=== PATIENT | male | born 1945 | race Caucasian/White ===

== ENCOUNTER 2019-12-10 10:44 | Outpatient (CLI) | payer MEDICARE, OTHER, SELFPAY | END 2019-12-10 10:45 | disposition home or self-care (01) | LOC: ANHAUDIO 10:47 | PROVIDERS: PCP Internal Medicine; Visit Provider Internal Medicine | DX: H91.90 Unspecified hearing loss, unspecified ear (principal) | CPT/HCPCS: 92557; 92567 ==

== ENCOUNTER 2020-09-30 08:45 | Outpatient (CLI) | payer MEDICARE, OTHER, SELFPAY ==
[2020-09-30 09:30] LABS: Basophils Percent Auto 0.7 % (0.2-1.2); Eosinophils Absolute Auto 0.5 K/mm3 (0-0.3); Hematocrit 43.2 % (42.0-52.0); Hemoglobin 14.2 g/dL (14.0-18.0); Immature Granulocyte Absolute 0.01 K/mm3 (0.00-0.031); Immature Granulocyte Percent A 0.2 % (0-0.5); Lymphocytes Absolute Auto 0.94 K/mm3 (0.9-3.2); Lymphocytes Percent Auto 21.7 % (18.3-44.2); Mean Corpuscular HGB Conc 32.9 g/dl (32-36); Mean Corpuscular Hemoglobin 29.5 pg (26-34); Mean Corpuscular Volume 89.6 fl (80-100); Mean Platelet Volume 10.8 fl (7.4-10.4); Monocytes Absolute Auto 0.3 K/mm3 (0.1-0.6); Monocytes Percent Auto 7.4 % (2.6-8.5); Neutrophils Absolute Auto 2.5 K/mm3 (1.3-6.7); Platelet Count Result 157 k/mm3 (150-375); Red Blood Count 4.82 M/mm3 (4.6-6.20); Red Cell Distribution Width 12.7 % (11.5-14.5); White Blood Count 4.3 K/mm3 (4.5-10.0)
[2020-09-30 09:42] LABS: Alanine Aminotransferase 18 U/L (4-50); Albumin Level 4.3 g/dL (3.5-5.1); Alkaline Phosphatase 62 U/L (38-126); Anion Gap 6 mmol/L (8-16); Aspartate Amino Transferase 28 U/L (17-59); Bilirubin,Total 0.9 mg/dL (0.2-1.3); Blood Urea Nitrogen 13 mg/dL (9-20); Carbon Dioxide 31 mmol/L (22-30); Chloride 103 mmol/L (98-107); Cholesterol 167 mg/dL (0-200); Estimated Glomerular Filt Rate > 60; Glucose 106 mg/dL (75-110); HDL Direct 46 mg/dL; Potassium 4.2 mmol/L (3.4-5.0); Sodium 140 mmol/L (137-145); Triglycerides 114 mg/dL (<150)
[2020-09-30 09:53] LABS: LDL Cholesterol Direct 96 mg/dL
[2020-09-30 10:11] LABS: Prostate Specific Antigen < 0.1 ng/mL (< OR = 4.0)
== END 2020-09-30 08:46 | disposition home or self-care (01) ==
PROVIDERS: PCP Internal Medicine; Visit Provider Nurse Practitioner
DX: I10 Essential (primary) hypertension (principal); E78.5 Hyperlipidemia, unspecified; Z85.46 Personal history of malignant neoplasm of prostate
CPT/HCPCS: 36415; 80053; 80061; 84153; 85025

== ENCOUNTER 2021-10-05 10:15 | Outpatient (CLI) | payer MEDICARE, OTHER, SELFPAY ==
[2021-10-05 10:36] LABS: Basophils Percent Auto 0.6 % (0.2-1.2); Eosinophils Absolute Auto 0.1 K/mm3 (0-0.3); Eosinophils Percent Auto 3.4 % (0-4.4); Hematocrit 43.3 % (42.0-52.0); Hemoglobin 13.8 g/dL (14.0-18.0); Immature Granulocyte Absolute 0.01 K/mm3 (0.00-0.031); Immature Granulocyte Percent A 0.3 % (0-0.5); Lymphocytes Absolute Auto 0.78 K/mm3 (0.9-3.2); Lymphocytes Percent Auto 22.3 % (18.3-44.2); Mean Corpuscular HGB Conc 31.9 g/dl (32-36); Mean Corpuscular Hemoglobin 29.1 pg (26-34); Mean Corpuscular Volume 91.4 fl (80-100); Mean Platelet Volume 10.5 fl (7.4-10.4); Monocytes Absolute Auto 0.4 K/mm3 (0.1-0.6); Neutrophils Absolute Auto 2.2 K/mm3 (1.3-6.7); Neutrophils Percent Auto 63.4 % (45.5-73.1); Platelet Count Result 149 k/mm3 (150-375); Red Blood Count 4.74 M/mm3 (4.6-6.20); Red Cell Distribution Width 13.3 % (11.5-14.5); White Blood Count 3.5 K/mm3 (4.5-10.0)
[2021-10-05 10:51] LABS: Alanine Aminotransferase 16 U/L (4-50); Albumin Level 4.4 g/dL (3.5-5.1); Alkaline Phosphatase 65 U/L (38-126); Anion Gap 5 mmol/L (8-16); Aspartate Amino Transferase 27 U/L (17-59); Blood Urea Nitrogen 12 mg/dL (9-20); Calcium 9.3 mg/dL (8.4-10.2); Carbon Dioxide 30 mmol/L (22-30); Chloride 103 mmol/L (98-107); Cholesterol 188 mg/dL (0-200); Estimated Glomerular Filt Rate > 60; Glucose 118 mg/dL (65-110); HDL Direct 53 mg/dL; Potassium 4.3 mmol/L (3.4-5.0); Sodium 138 mmol/L (137-145); Triglycerides 71 mg/dL (<150)
[2021-10-05 11:02] LABS: LDL Cholesterol Direct 108 mg/dL
[2021-10-06 13:18] LABS: Hemoglobin A1C 5.9 % (<5.7)
== END 2021-10-05 10:16 | disposition home or self-care (01) ==
PROVIDERS: PCP Internal Medicine; Visit Provider Nurse Practitioner
DX: U07.1 COVID-19 (principal); E78.5 Hyperlipidemia, unspecified; I10 Essential (primary) hypertension; Z51.81 Encounter for therapeutic drug level monitoring; Z79.899 Other long term (current) drug therapy
CPT/HCPCS: 36415; 80053; 80061; 83036; 85025; 86769

== ENCOUNTER 2021-10-22 09:31 | Outpatient (CLI) | payer MEDICARE, OTHER, SELFPAY ==
[2021-10-22 10:08] LABS: Basophils Percent Auto 0.4 % (0.2-1.2); Eosinophils Absolute Auto 0.2 K/mm3 (0-0.3); Eosinophils Percent Auto 3.2 % (0-4.4); Hematocrit 44.7 % (42.0-52.0); Hemoglobin 14.1 g/dL (14.0-18.0); Immature Granulocyte Absolute 0.02 K/mm3 (0.00-0.031); Immature Granulocyte Percent A 0.4 % (0-0.5); Immature Platelet Fraction Pct 5.1 % (0.9-11.2); Lymphocytes Percent Auto 12.9 % (18.3-44.2); Mean Corpuscular HGB Conc 31.5 g/dl (32-36); Mean Corpuscular Hemoglobin 28.8 pg (26-34); Mean Corpuscular Volume 91.2 fl (80-100); Mean Platelet Volume 10.7 fl (7.4-10.4); Monocytes Absolute Auto 0.4 K/mm3 (0.1-0.6); Monocytes Percent Auto 8.2 % (2.6-8.5); Neutrophils Absolute Auto 3.5 K/mm3 (1.3-6.7); Neutrophils Percent Auto 74.9 % (45.5-73.1); Platelet Count Result 143 k/mm3 (150-375); Red Cell Distribution Width 13.1 % (11.5-14.5); White Blood Count 4.7 K/mm3 (4.5-10.0)
[2021-10-22 11:00] LABS: Prostate Specific Antigen < 0.1 ng/mL (< OR = 4.0)
== END 2021-10-22 09:32 | disposition home or self-care (01) ==
PROVIDERS: PCP Internal Medicine; Visit Provider Nurse Practitioner
DX: Z12.5 Encounter for screening for malignant neoplasm of prostate (principal); Z85.46 Personal history of malignant neoplasm of prostate; D72.819 Decreased white blood cell count, unspecified
CPT/HCPCS: 36415; 84153; 85025; 85055; G0103

== ENCOUNTER 2021-12-02 07:29 | Outpatient (CLI) | payer MEDICARE, OTHER, SELFPAY ==
[2021-12-02 08:32] LABS: Basophils Percent Auto 0.5 % (0.2-1.2); Eosinophils Absolute Auto 0.4 K/mm3 (0-0.3); Eosinophils Percent Auto 11.1 % (0-4.4); Hematocrit 43.6 % (42.0-52.0); Immature Granulocyte Absolute 0.02 K/mm3 (0.00-0.031); Immature Granulocyte Percent A 0.5 % (0-0.5); Immature Platelet Fraction Pct 6.1 % (0.9-11.2); Lymphocytes Absolute Auto 0.91 K/mm3 (0.9-3.2); Lymphocytes Percent Auto 23.6 % (18.3-44.2); Mean Corpuscular HGB Conc 32.1 g/dl (32-36); Mean Corpuscular Hemoglobin 29.6 pg (26-34); Mean Corpuscular Volume 92.2 fl (80-100); Mean Platelet Volume 11.4 fl (7.4-10.4); Monocytes Absolute Auto 0.5 K/mm3 (0.1-0.6); Monocytes Percent Auto 12.7 % (2.6-8.5); Neutrophils Percent Auto 51.6 % (45.5-73.1); Platelet Count Result 129 k/mm3 (150-375); Red Blood Count 4.73 M/mm3 (4.6-6.20); Red Cell Distribution Width 13.2 % (11.5-14.5); White Blood Count 3.9 K/mm3 (4.5-10.0)
== END 2021-12-02 07:30 | disposition home or self-care (01) ==
PROVIDERS: PCP Internal Medicine; Visit Provider Nurse Practitioner
DX: D72.819 Decreased white blood cell count, unspecified (principal)
CPT/HCPCS: 36415; 85025; 85055

== ENCOUNTER 2022-02-03 15:54 | Outpatient (CLI) | payer MEDICARE, OTHER, SELFPAY ==
[2022-02-03 16:14] LABS: Basophils Percent Auto 0.5 % (0.2-1.2); Eosinophils Absolute Auto 0.2 K/mm3 (0-0.3); Eosinophils Percent Auto 5.5 % (0-4.4); Hematocrit 45.6 % (42.0-52.0); Hemoglobin 14.6 g/dL (14.0-18.0); Immature Granulocyte Absolute 0.01 K/mm3 (0.00-0.031); Immature Granulocyte Percent A 0.2 % (0-0.5); Lymphocytes Absolute Auto 0.78 K/mm3 (0.9-3.2); Lymphocytes Percent Auto 17.8 % (18.3-44.2); Mean Corpuscular Volume 90.5 fl (80-100); Mean Platelet Volume 10.7 fl (7.4-10.4); Monocytes Absolute Auto 0.4 K/mm3 (0.1-0.6); Monocytes Percent Auto 8.7 % (2.6-8.5); Neutrophils Absolute Auto 2.9 K/mm3 (1.3-6.7); Neutrophils Percent Auto 67.3 % (45.5-73.1); Platelet Count Result 167 k/mm3 (150-375); Red Blood Count 5.04 M/mm3 (4.6-6.20); Red Cell Distribution Width 13.2 % (11.5-14.5); White Blood Count 4.4 K/mm3 (4.5-10.0)
[2022-02-03 16:42] LABS: Alanine Aminotransferase 16 U/L (6-50); Albumin Level 4.6 g/dL (3.5-5.1); Alkaline Phosphatase 75 U/L (38-126); Anion Gap 7 mmol/L (8-16); Aspartate Amino Transferase 45 U/L (17-59); Bilirubin,Total 0.6 mg/dL (0.2-1.3); Blood Urea Nitrogen 14 mg/dL (9-20); Carbon Dioxide 28 mmol/L (22-30); Chloride 101 mmol/L (98-107); Estimated Glomerular Filt Rate > 60; Glucose 94 mg/dL (65-110); Lactate Dehydrogenase 308 U/L (313-618); Potassium 4.4 mmol/L (3.4-5.0); Sodium 136 mmol/L (137-145)
[2022-02-03 17:50] LABS: Folic Acid > 20.0 ng/mL (2.76->20)
[2022-02-03 18:22] LABS: Iron 65 ug/dL (49-181)
[2022-02-03 18:30] LABS: Percent Iron Saturation 17 % (20-50)
[2022-02-07 23:56] LABS: Methylmalonic Acid 121 nmol/L (87-318)
== END 2022-02-03 15:55 | disposition home or self-care (01) ==
LOC: ANHLAB 15:57
PROVIDERS: PCP Internal Medicine; Visit Provider Internal Medicine Hematology & Oncology
DX: D64.9 Anemia, unspecified (principal)
CPT/HCPCS: 36415; 80053; 82607; 82728; 82746; 83540; 83550; 83615; 83921; 85025; 86038

== ENCOUNTER 2022-06-01 01:39 | Day surgery (SDC) | payer MEDICARE, OTHER, SELFPAY ==
[2022-05-18 15:04] VITALS: BMI 21.7
[2022-06-01 08:50] VITALS: BP 139/77; PULSE 88; RESP 20; TEMP 36; O2SAT 100; BMI 19.2
[2022-06-01] MEDS: LACTATED RINGERS 1,000 ML 150 ML IV CONT (09:04)
--- NOTE | 2022-06-01 09:24 | P.PNAN_ITS ---
Anes - Initial Pre Proc Eval Procedure: Operation Date: 06/01/22 10:00 Proposed Procedures p Colonoscopy - Jase Holder MD Date/Time: 06/01/22 09:24 Surgeon: Jase Holder MD Pre Op Diagnosis: LINH Patient Data Age: 77 Gender: M Height: 1.83 m Weight: 64.4 kg Last Vital Signs Temp 36.0 C L 06/01/22 08:50 Pulse 88 06/01/22 08:50 Resp 20 06/01/22 08:50 BP 139/77 06/01/22 08:50 Pulse Ox 100 06/01/22 08:50 O2 Del Method Room Air 06/01/22 08:50 Allergies Allergy/AdvReac Type Severity Reaction Status Date / Time No Known Allergies Allergy Verified 05/18/22 15:03 Home Medications Medication Instructions Recorded Confirmed Type aspirin 81 mg tablet,delayed 81 mg PO DAILY #90 tabs 08/16/21 06/01/22 Rx release (Adult Low Dose Aspirin) lisinopril 10 mg tablet 10 mg PO DAILY #90 tabs 08/16/21 06/01/22 Rx sildenafil 100 mg tablet (Viagra) 100 mg PO DAILY PRN sexual 08/16/21 06/01/22 Rx activity #18 tabs simvastatin 10 mg tablet 10 mg PO DAILY #90 tabs 08/16/21 06/01/22 Rx Patient hx anesthesia problems: none Family hx anesthesia problems: none Results Review: All pre-operative results and documents have been reviewed as part of the pre- operative evaluation. [facility] Past Medical History Medical History DVT (deep venous thrombosis) In shoulder H/O prostate cancer Hyperlipidemia Hypertension Vertigo Surgical History Surgical History H/O hernia repair H/O prostatectomy Family History Family History Mother Diabetes mellitus Carcinoma of colon Father Family history of cardiovascular disease Social History Social History Smoking status: Never smoker Alcohol intake: current Living arrangements: with family Anes - Eval Final PreProcedure Day of Procedure 06/01/22 09:24 Patient weight: normal Heart: regular rate and rhythm Lungs: clear to auscultation Airway: Mallampati scale class II Last oral intake: >/= 8 hours ASA classification: II Anesthetic plan: proceed Anesthesia type and monitoring: general GIVS and standard monitoring Results Review: All pre-operative results and documents have been reviewed as part of the pre- operative evaluation. Informed Consent: The patient's anesthetic plan and its attendant risks and benefits were discussed with the patient/family/POA. Questions were solicited and answers provided to the satisfaction of the patient/family/POA.
--- NOTE | 2022-06-01 09:24 | PM.HPGS ---
History of Present Illness History of Present Illness Consent: Risks, benefits, and alternatives have been discussed and questions answered. Patient agrees to proceed with procedure. Chief complaint: LINH Narrative: Ariel Westbrook is a 77 year old male Referred for investigation of iron deficiency anemia. Review of Systems Review of Systems: All systems reviewed & are unremarkable except as noted in HPI and below PMFSH Past Medical History Medical History DVT (deep venous thrombosis) In shoulder H/O prostate cancer Hyperlipidemia Hypertension Vertigo Surgical History Surgical History H/O hernia repair H/O prostatectomy Family History Family History Mother Diabetes mellitus Carcinoma of colon Father Family history of cardiovascular disease Social History Social History Smoking status: Never smoker Alcohol intake: current Living arrangements: with family Meds Home Medications and Allergies Home Medications Medication Instructions Recorded Confirmed Type aspirin 81 mg tablet,delayed 81 mg PO DAILY #90 tabs 08/16/21 06/01/22 Rx release (Adult Low Dose Aspirin) lisinopril 10 mg tablet 10 mg PO DAILY #90 tabs 08/16/21 06/01/22 Rx sildenafil 100 mg tablet (Viagra) 100 mg PO DAILY PRN sexual 08/16/21 06/01/22 Rx activity #18 tabs simvastatin 10 mg tablet 10 mg PO DAILY #90 tabs 08/16/21 06/01/22 Rx Allergies Allergy/AdvReac Type Severity Reaction Status Date / Time No Known Allergies Allergy Verified 05/18/22 15:03 Vital Signs Vital Signs - 24 hr 06/01/22 08:50 Temperature 36.0 C L Pulse Rate 88 Respiratory Rate 20 Blood Pressure 139/77 Pulse Oximetry 100 Oxygen Delivery Room Air Exam Resp: Auscultation: clear to auscultation bilaterally Cardio: Rate: regular rate Rhythm: regular rhythm GI: GI Palp: Yes Soft to palpation and No Tenderness to palpation present (GI) Assessment and Plan Assessment and plan (1) Anemia: Code(s): D64.9 - Anemia, unspecified Status: Acute Assessment and Plan: Colonoscopy with possible biopsy or polypectomy or cautery or injection of substances.
[2022-06-01 10:15] VITALS: BP 79/44; PULSE 59; RESP 14; O2SAT 97
[2022-06-01 10:25] VITALS: BP 84/58; PULSE 55; RESP 14; O2SAT 100
[2022-06-01 10:35] VITALS: BP 116/73; PULSE 51; RESP 16; O2SAT 100
== END 2022-06-01 10:50 | disposition home or self-care (01) ==
PROVIDERS: PCP Internal Medicine; Visit Provider Internal Medicine Gastroenterology
PROC: 0DJD8ZZ Inspection of Lower Intestinal Tract, Via Natural or Artificial Opening Endoscopic (ICD-10-PCS; CPT 45378; principal; 2022-06-01 10:00)
DX: D50.9 Iron deficiency anemia, unspecified (principal); K64.8 Other hemorrhoids; K57.30 Diverticulosis of large intestine without perforation or abscess without bleeding; Z86.010 Personal history of colon polyps; I10 Essential (primary) hypertension; E78.5 Hyperlipidemia, unspecified; Z86.718 Personal history of other venous thrombosis and embolism; Z85.46 Personal history of malignant neoplasm of prostate; Z79.82 Long term (current) use of aspirin
CPT/HCPCS: 45378; J2704; J7120

== ENCOUNTER 2022-10-04 09:06 | Outpatient (CLI) | payer MEDICARE, OTHER, SELFPAY ==
[2022-10-04 09:30] LABS: Basophils Percent Auto 0.3 % (0.2-1.2); Eosinophils Absolute Auto 0.3 K/mm3 (0-0.3); Eosinophils Percent Auto 8.1 % (0-4.4); Hemoglobin 14.8 g/dL (14.0-18.0); Immature Granulocyte Absolute 0.01 K/mm3 (0.00-0.031); Immature Granulocyte Percent A 0.3 % (0-0.5); Immature Platelet Fraction Pct 4.7 % (0.9-11.2); Lymphocytes Absolute Auto 0.86 K/mm3 (0.9-3.2); Lymphocytes Percent Auto 23.1 % (18.3-44.2); Mean Corpuscular HGB Conc 32.2 g/dl (32-36); Mean Corpuscular Hemoglobin 29.7 pg (26-34); Mean Corpuscular Volume 92.4 fl (80-100); Mean Platelet Volume 10.7 fl (7.4-10.4); Monocytes Absolute Auto 0.3 K/mm3 (0.1-0.6); Monocytes Percent Auto 7.8 % (2.6-8.5); Neutrophils Absolute Auto 2.3 K/mm3 (1.3-6.7); Neutrophils Percent Auto 60.4 % (45.5-73.1); Platelet Count Result 132 k/mm3 (150-375); Red Blood Count 4.98 M/mm3 (4.6-6.20); Red Cell Distribution Width 12.6 % (11.5-14.5); White Blood Count 3.7 K/mm3 (4.5-10.0)
[2022-10-04 13:32] LABS: Iron 101 ug/dL (49-181)
[2022-10-04 13:41] LABS: Percent Iron Saturation 28 % (20-50)
== END 2022-10-04 09:07 | disposition home or self-care (01) ==
LOC: ANHLAB 09:08
PROVIDERS: PCP Internal Medicine; Visit Provider Internal Medicine Hematology & Oncology
DX: D64.9 Anemia, unspecified (principal)
CPT/HCPCS: 36415; 82728; 83540; 83550; 85025; 85055

== ENCOUNTER 2023-05-09 08:04 | Outpatient (CLI) | payer MEDICARE, OTHER, SELFPAY ==
[2023-05-09 08:24] LABS: Basophils Percent Auto 0.3 % (0.2-1.2); Eosinophils Absolute Auto 0.3 K/mm3 (0-0.3); Eosinophils Percent Auto 8.5 % (0-4.4); Hematocrit 43.1 % (42.0-52.0); Immature Granulocyte Absolute 0.01 K/mm3 (0.00-0.031); Immature Granulocyte Percent A 0.3 % (0-0.5); Immature Platelet Fraction Pct 5.2 % (0.9-11.2); Lymphocytes Absolute Auto 0.92 K/mm3 (0.9-3.2); Lymphocytes Percent Auto 26.2 % (18.3-44.2); Mean Corpuscular HGB Conc 32.5 g/dl (32-36); Mean Corpuscular Hemoglobin 29.4 pg (26-34); Mean Corpuscular Volume 90.5 fl (80-100); Mean Platelet Volume 10.9 fl (7.4-10.4); Monocytes Absolute Auto 0.3 K/mm3 (0.1-0.6); Monocytes Percent Auto 7.7 % (2.6-8.5); Platelet Count Result 123 k/mm3 (150-375); Red Blood Count 4.76 M/mm3 (4.6-6.20); Red Cell Distribution Width 12.7 % (11.5-14.5); White Blood Count 3.5 K/mm3 (4.5-10.0)
[2023-05-09 09:34] LABS: Alanine Aminotransferase 17 U/L (6-50); Albumin Level 4.2 g/dL (3.5-5.1); Alkaline Phosphatase 64 U/L (38-126); Anion Gap 7 mmol/L (8-16); Aspartate Amino Transferase 25 U/L (17-59); Bilirubin,Total 0.6 mg/dL (0.2-1.3); Blood Urea Nitrogen 15 mg/dL (9-20); Calcium 8.7 mg/dL (8.4-10.2); Carbon Dioxide 29 mmol/L (22-30); Chloride 103 mmol/L (98-107); Estimated Glomerular Filt Rate > 60; Glucose 100 mg/dL (65-110); Potassium 3.9 mmol/L (3.4-5.0); Sodium 139 mmol/L (137-145)
[2023-05-09 09:36] LABS: Iron 50 ug/dL (49-181)
[2023-05-09 09:47] LABS: Percent Iron Saturation 15 % (20-50)
== END 2023-05-09 08:05 | disposition home or self-care (01) ==
LOC: ANHLAB 08:06
PROVIDERS: PCP Internal Medicine; Visit Provider Internal Medicine Hematology & Oncology
DX: D64.9 Anemia, unspecified (principal)
CPT/HCPCS: 36415; 80053; 82607; 82728; 83540; 83550; 85025; 85055

== ENCOUNTER 2024-01-12 10:26 | Outpatient (CLI) | payer MEDICARE, OTHER, SELFPAY ==
[2024-01-12 10:44] LABS: Basophils Percent Auto 0.6 % (0.2-1.2); Eosinophils Absolute Auto 0.3 K/mm3 (0-0.3); Eosinophils Percent Auto 5.6 % (0-4.4); Hematocrit 46.3 % (42.0-52.0); Hemoglobin 14.8 g/dL (14.0-18.0); Immature Granulocyte Absolute 0.03 K/mm3 (0.00-0.031); Immature Granulocyte Percent A 0.6 % (0-0.5); Lymphocytes Absolute Auto 0.75 K/mm3 (0.9-3.2); Lymphocytes Percent Auto 16.1 % (18.3-44.2); Mean Corpuscular Hemoglobin 29.4 pg (26-34); Mean Platelet Volume 10.7 fl (7.4-10.4); Monocytes Absolute Auto 0.4 K/mm3 (0.1-0.6); Monocytes Percent Auto 8.4 % (2.6-8.5); Neutrophils Absolute Auto 3.2 K/mm3 (1.3-6.7); Neutrophils Percent Auto 68.7 % (45.5-73.1); Platelet Count Result 151 k/mm3 (150-375); Red Blood Count 5.03 M/mm3 (4.6-6.20); Red Cell Distribution Width 13.1 % (11.5-14.5); White Blood Count 4.7 K/mm3 (4.5-10.0)
[2024-01-12 11:29] LABS: Anion Gap 5 mmol/L (4-12); Blood Urea Nitrogen 15 mg/dL (9-20); Calcium 9.6 mg/dL (8.4-10.2); Carbon Dioxide 28 mmol/L (22-30); Chloride 108 mmol/L (98-107); Estimated Glomerular Filt Rate > 60; Glucose 117 mg/dL (65-110); Potassium 4.2 mmol/L (3.4-5.0); Sodium 141 mmol/L (137-145)
[2024-01-12 15:16] LABS: Iron 97 ug/dL (49-181); Percent Iron Saturation 31 % (20-50)
== END 2024-01-12 10:27 | disposition home or self-care (01) ==
PROVIDERS: PCP Internal Medicine; Visit Provider Internal Medicine Hematology & Oncology
DX: D64.9 Anemia, unspecified (principal)
CPT/HCPCS: 36415; 80048; 82607; 82728; 83540; 83550; 85025

== ENCOUNTER 2025-01-20 11:29 | Outpatient (CLI) | payer MEDICARE, OTHER, SELFPAY ==
[2025-01-20 11:52] LABS: Basophils Percent Auto 0.7 % (0.2-1.2); Eosinophils Absolute Auto 0.1 K/mm3 (0-0.3); Eosinophils Percent Auto 3.3 % (0-4.4); Hematocrit 45.8 % (42.0-52.0); Hemoglobin 14.7 g/dL (14.0-18.0); Immature Granulocyte Absolute 0.02 K/mm3 (0.00-0.031); Immature Granulocyte Percent A 0.5 % (0-0.5); Lymphocytes Absolute Auto 0.69 K/mm3 (0.9-3.2); Lymphocytes Percent Auto 16.2 % (18.3-44.2); Mean Corpuscular HGB Conc 32.1 g/dl (32-36); Mean Corpuscular Hemoglobin 29.3 pg (26-34); Mean Corpuscular Volume 91.2 fl (80-100); Mean Platelet Volume 10.7 fl (7.4-10.4); Monocytes Absolute Auto 0.3 K/mm3 (0.1-0.6); Monocytes Percent Auto 7.7 % (2.6-8.5); Neutrophils Absolute Auto 3.1 K/mm3 (1.3-6.7); Neutrophils Percent Auto 71.6 % (45.5-73.1); Platelet Count Result 154 k/mm3 (150-375); Red Blood Count 5.02 M/mm3 (4.6-6.20); Red Cell Distribution Width 13.2 % (11.5-14.5); White Blood Count 4.3 K/mm3 (4.5-10.0)
--- OUTSIDE RECORDS SUMMARY | 2025-01-20 12:21 | XMS_ITS | Clinical Summary ---
Author Organization [facility] Address [facility] [place] [address] Care Team Providers Care Nurse Anesthetist Name Role Phone Unavailable Primary Care Provider Unavailabl e Social History Tobacco Use Types Packs/Day Years Used Date Smoking Tobacco: Never Assessed Sex and Gender Information Value Date Recorded Sex Assigned at Not on file Legal Sex Male 8:33 PM CDT Gender Identity Not on file Sexual Orientation Not on file Plan of Treatment Health Maintenance Due Date Last Done Comments DTaP, Tdap and Td Vaccines ( 1 - Tdap) 01/08/1963 Pneumococcal Vaccine: 50+ Ye ars (1 of 1 - PCV) 01/08/1994 Zoster Vaccines (1 of 2) 01/08/1994 RSV Immunization or 60+ Years (1 - 1-dose 75+ series) 01/08/2019 COVID-19 Vaccine (2023-2 5 season) 2024 Meningococcal B Vaccine Aged Out No l onger eligible based on patient's age to complete this topic Meningococcal Vaccine Aged Out No cata zenon eligible based on patient's age to complete this topic RSV Immunizations Under 20 Months Aged Out No longer eligible based on patient's age to complete this topic
--- OUTSIDE RECORDS SUMMARY | 2025-01-20 12:21 | XMS_ITS | Continuity of Care Document ---
Author Name [facility] Organization [facility] Care Team Providers Care Sql Database Developer Name Role Phone [facility] Unavailable Unavailable Problems Combined list of problems from Department of Defense and Veterans Affairs facilities. It does not include entries that were removed or entered in error. Problem Status Onset Date Problem Type Date of Resolution Comments Source Vaccination given Active 024 Diagnosis 0055C-375 th [facility] Exposure to potentially hazardous substance (SCT [id number]) Active Condition Jan 08 Entered By: MARLEE MORE Comment: Entered automatically through Interfolio Problem List documentation program [facility] Hearing loss Active Condition [facility] Medical examinations/reports status Active Condition [facility] visit for: issue repeat prescription for medication Active Condition [facility] PROSTATE CANCER Active Condition [facility] blood in urine Active Condition [facility] Preventive Medicine Estab Patient Checkup Adult 40-64 Active Condition [facility] BENIGN PROSTATIC HYPERPLASIA Active Condition [facility] HYPERLIPIDEMIA Active Condition [facility] ESSENTIAL HYPERTENSION Active Condition [facility] visit for: administrative purpose Active Condition 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 [facility] OSTEOARTHRITIS Active Condition [facility] NORMAL ROUTINE HISTORY AND PHYSICAL Inactive Condition [facility] HYPERTENSION (SYSTEMIC) Active Condition [facility] Serology Prostate-specific Antigen (PSA) Elevated Active Condition [facility] Dietary Counseling Pertaining To Hypercholesterolemia Inactive Condition [facility] Patient Education Dietary Cooking Differently Inactive Condition [facility] Food Sources For Nutrients Inactive Condition [facility] Patient Education - Dietary Inactive Condition [facility] Patient Education Dietary Meal Planning Inactive Condition [facility] Patient Education Dietary Changing Eating Habits Inactive Condition [facility] Dietary Strategies When Eating Out Inactive Condition [facility] current diet needs less fat, more fiber Active Condition [facility] Patient Education Dietary Reading Food Labels Inactive Condition [facility] BACKACHE Inactive Condition [facility] visit for: refer patient without exam or treatment Inactive Condition [facility] CONDITIONS INFLUENCING HEALTH STATUS Active Condition [facility] Laboratory Studies Active Condition [facility] visit for: issue repeat prescription Inactive Condition [facility] Diagnosis: ICD-10-CM Z00.00 Encntr for general adult medical exam w/o abnormal findings Active Diagnosis [facility] Diagnosis: ICD-10-CM Z71.9 Counseling, unspecified Active Diagnosis [facility] Medications Combined list of outpatient medications from Department of Defense and Veterans Affairs facilities.Medications provided include 1) outpatient medications from the last 15 months, and 2) patient-reported medications. Medication Details Route Status Patient Instructions Prescription Expires Prescription Number Last Dispense Date Ordering Provider Order Date Order Qty Source sildenafil 100 mg tablet 100 mg, Oral, Daily, # 30 EA, 1 total refill(s ), Hard Stop Oral (given by mouth) Ordered 05/21/2025 5 2024 30.0 Ambulat ory Pharmac y sildenafil 100 mg tablet See Instruct ions, # 30 EA, 1 total refill(s ), Hard Stop Discont inued 06/04/2024 4 2023 30.0 Ambulat ory Pharmac y simvastatin 10 mg oral tablet TAKE ONE TABLET BY MOUTH EVERY DAY, # 90 EA, 2 total refill(s ), Acute Complet ed 06/13/2023 2 2022 90.0 Ambulat ory Pharmac y Allergies, Adverse Reactions, Alerts Combined list of allergies from Department of Defense and Veterans Affairs facilities. It does not include entries that were removed or entered in error. Substance Category Reaction Severity Reaction type Status Date Reported Comments Source NO OUTPUT FOR NCID [id number] Drug allergy (disorder) active 05/20/2008 [employer] Cory FLETCHER ([facility] Immunizations Combined list of available immunizations from the Department of Defense and Veterans Affairs facilities. Immunization Series Date Given Administered By Site Reaction Lot Number CVX Code Drug Phone Technician Status Comments Source tetanus-dipht h toxoids (Td) adult/adol 2023 MITRA Arellano samira, right (delt oid) [id number] sanofi pasteur complet ed tetanus-d iphth toxoids (Td) adult/ado l 04/10/24 Given 0055C-3 [facility] [place] zoster vaccine, inactivated 2021 Zachariah ht Arm [id number] 187 GlaxoSmithKli ne complet ed zoster vaccine, inactivat ed 04/25/22 Given Ambulat ory Pharmac y zoster vaccine, inactivated 2021 [id number] 187 GlaxoSmithKli ne complet ed zoster vaccine, inactivat ed 04/25/22 Given Ambulat ory Pharmac y zoster vaccine recombinant 1 2021 Unknown, Provider [id number] 187 [facility] (SKB) complet ed zoster vaccine recombina nt DoD zoster vaccine, inactivated 2021 zzLef t Arm [id number] 187 GlaxoSmithKli ne complet ed zoster vaccine, inactivat ed 01/04/22 Given Ambulat ory Pharmac y zoster vaccine, inactivated 2021 [id number] 187 GlaxoSmithKli ne complet ed zoster vaccine, inactivat ed 01/04/22 Given Ambulat ory Pharmac y zoster vaccine recombinant 1 2021 Unknown, Provider [id number] [facility] zoster vaccine recombina nt DoD influenza, high-dose seasonal, quad, pf 2020 197 sanofi pasteur complet ed influenza , high-dose seasonal, quad, pf 05/18/21 Given Ambulat ory Pharmac y influenza, high-dose, quadrivalent 2020 BRANDING, () Not Given influenza , high-dose , quadrival ent DoD COVID Vaccine Moderna 2020 TRANSCR IBED 207 complet ed COVID Vaccine Moderna 12/07/20 Given Ambulat ory Pharmac y COVID Vaccine Moderna 2020 TRANSCR IBED 207 complet ed COVID Vaccine Moderna 12/07/20 Given Ambulat ory Pharmac y SARS-COV-2 (COVID-19) vaccine, mRNA, spike protein, LNP, preservative free, 100 mcg or 50 mcg dose 2 2020 Unknown, Provider 207 Moderna US, Inc. (MOD) complet ed SARS-COV- 2 (COVID-19 ) vaccine, mRNA, spike protein, LNP, preservat tessa free, 100 mcg or 50 mcg dose DoD COVID Vaccine Moderna 2020 TRANSCR IBED 207 complet ed COVID Vaccine Moderna 11/04/20 Given Ambulat ory Pharmac y COVID Vaccine Moderna 2020 TRANSCR IBED 207 complet ed COVID Vaccine Moderna 11/04/20 Given Ambulat ory Pharmac y SARS-COV-2 (COVID-19) vaccine, mRNA, spike protein, LNP, preservative free, 100 mcg or 50 mcg dose 1 2020 Unknown, Provider 207 Moderna [employer], Inc. (MOD) complet ed SARS-COV- 2 (COVID-19 ) vaccine, mRNA, spike protein, LNP, preservat tessa free, 100 mcg or 50 mcg dose DoD influenza virus vaccine, inactivated 2019 MITRA KOHLER 88 complet ed Result Comment: Unit: Unknown Manufactu rer: () 0055C-[address] [place] [address] Influenza vaccine, quadrivalent, adjuvanted 2019 ALUL, () Not Given Influenza vaccine, quadrival ent, adjuvante d DoD influenza virus vaccine, inactivated 2018 88 [employer] complet ed influenza virus vaccine, inactivat ed 07/03/19 Given Ambulat ory Pharmac y influenza, injectable, quadrivalent- pf 2017 zzLef t Arm [id number] 150 Se[employer] complet ed influenza , injectabl e, quadrival ent-pf 07/09/18 Given Ambulat ory Pharmac y influenza, injectable, quadrivalent- pf 2017 [id number] 150 [employer] complet ed influenza , injectabl e, quadrival ent-pf 07/09/18 Given Ambulat ory Pharmac y Influenza, injectable, quadrivalent, preservative free 1 2017 Unknown, Provider [id number] 150 Seqirus (SEQ) complet ed Influenza , injectabl e, quadrival ent, preservat tessa free DoD influenza, injectable, quadrivalent- pf 2016 zzLef t Arm [id number] 150 GlaxoSmithKli ne complet ed influenza , injectabl e, quadrival ent-pf 07/07/17 Given Ambulat ory Pharmac y influenza, injectable, quadrivalent- pf 2016 [id number] 150 GlaxoSmithKli ne complet ed influenza , injectabl e, quadrival ent-pf 07/07/17 Given Ambulat ory Pharmac y Influenza, injectable, quadrivalent, preservative free 1 2016 Unknown, Provider [id number] 150 [employer]Kline (SKB) complet ed Influenza , injectabl e, quadrival ent, preservat tessa free DoD influenza, seasonal, injectable-pf 2015 zzLef t Arm [id number] 140 Se[employer]irus complet ed influenza , seasonal, injectabl e-pf 08/25/16 Given Ambulat ory Pharmac y influenza, seasonal, injectable-pf 2015 [id number] 140 Se[employer] complet ed influenza , seasonal, injectabl e-pf 08/25/16 Given Ambulat ory Pharmac y Influenza, seasonal, injectable, preservative free 1 2015 Unknown, Provider [id number] 140 Seqirus (SEQ) complet ed Influenza , seasonal, injectabl e, preservat tessa free DoD pneumococcal 13-valent conjugate (PCV13) 2014 zzLef t Arm [id number] 133 [employer] complet ed pneumococ sowmya 13-valent conjugate (PCV13) 07/16/15 Given Ambulat ory Pharmac y pneumococcal 13-valent conjugate (PCV13) 2014 [id number] 133 [employer] complet ed pneumococ sowmya 13-valent conjugate (PCV13) 07/16/15 Given Ambulat ory Pharmac y pneumococcal conjugate vaccine, 13 valent 1 2014 Unknown, Provider [id number] [facility] ([facility]) complet ed pneumococ sowmya conjugate vaccine, 13 valent DoD influenza, injectable, quadrivalent- pf 2014 zzLef t Arm [id number] 150 GlaxoSmithKli ne complet ed influenza , injectabl e, quadrival ent-pf 07/13/15 Given Ambulat ory Pharmac y influenza, injectable, quadrivalent- pf 2014 [id number] 150 GlaxoSmithKli ne complet ed influenza , injectabl e, quadrival ent-pf 07/13/15 Given Ambulat ory Pharmac y Influenza, injectable, quadrivalent, preservative free 1 2014 Unknown, Provider [id number] 150 [employer] (SKB) complet ed Influenza , injectabl e, quadrival ent, preservat tessa free DoD influenza, injectable, quadrivalent- pf 2013 zzLef t Arm [id number] 150 [employer] complet ed influenza , injectabl e, quadrival ent-pf 07/11/14 Given Ambulat ory Pharmac y influenza, injectable, quadrivalent- pf 2013 [id number] 150 [employer] comple t ed influenza , injectabl e, quadrival ent-pf 07/11/14 Given Ambulat ory Pharmac y Influenza, injectable, quadrivalent, preservative free 1 2013 Unknown, Provider [id number] 150 (IDB) complet ed Influenza , injectabl e, quadrival ent, preservat tessa free DoD influenza, seasonal, injectable-pf 2012 zzLef t Arm [id number] 140 sanofi pasteur complet ed influenza , seasonal, injectabl e-pf 08/08/13 Given Ambulat ory Pharmac y tetanus, diphtheria, acellular pertu is 2012 zzRig ht Arm [id number] 115 GlaxoSmithKli ne complet ed tetanus, diphtheri a, acellular pertussis 08/08/13 Given Ambulat ory Pharmac y influenza, seasonal, injectable-pf 2012 [id number] 140 sanofi pasteur complet ed influenza , seasonal, injectabl e-pf 08/08/13 Given Ambulat ory Pharmac y tetanus, diphtheria, acellular pertu is 2012 [id number] 115 GlaxoSmithKli ne complet ed tetanus, diphtheri a, acellular pertussis 08/08/13 Given Ambulat ory Pharmac y tetanus toxoid, reduced diphtheria toxoid, and acellular pertu is vaccine, adsorbed 1 2012 Unknown, Provider [id number] [facility] (SKB) complet ed tetanus toxoid, reduced diphtheri a toxoid, and acellular pertussis vaccine, adsorbed DoD Influenza, seasonal, injectable, preservative free 1 2012 Unknown, Provider [id number] 140 Sanofi Pasteur ([facility]) complet ed Influenza , seasonal, injectabl e, preservat tessa free DoD tetanus-dipht h toxoids (Td) adult/adol 2011 zzRig ht Arm [id number] 09 [place] [email or web address] complet ed tetanus-d iphth toxoids (Td) adult/ado l 07/27/12 Given Ambulat ory Pharmac y influenza, seasonal, injectable 2011 zzRig ht Arm [id number] 141 sanofi pasteur complet ed influenza , seasonal, injectabl e 07/27/12 Given Ambulat ory Pharmac y influenza, seasonal, injectable 2011 [id number] 141 sanofi pasteur complet ed influenza , seasonal, injectabl e 07/27/12 Given Ambulat ory Pharmac y tetanus-dipht h toxoids (Td) adult/adol 2011 [id number] 09 [employer] complet ed tetanus-d iphth toxoids (Td) adult/ado l 07/27/12 Given Ambulat ory Pharmac y tetanus and diphtheria toxoids, adsorbed, preservative free, for adult use (2 Lf of tetanus toxoid and 2 Lf of diphtheria toxoid) 2 2011 Unknown, Provider [id number] 09 [facility] [employer] ([facility]) complet ed tetanus and diphtheri a toxoids, adsorbed, preservat tessa free, for adult use (2 Lf of tetanus toxoid and 2 Lf of diphtheri a toxoid) DoD Influenza, seasonal, injectable 5 2011 Unknown, Provider [id number] 141 Sanofi Pasteur ([facility]) complet ed Influenza , seasonal, injectabl e DoD influenza, seasonal, injectable 2010 zzLef t Arm [id number] 141 sanofi pasteur complet ed influenza , seasonal, injectabl e 07/19/11 Given Ambulat ory Pharmac y Influenza, seasonal, injectable 4 2010 Unknown, Provider [id number] 141 Sanofi Pasteur ([facility]) complet ed Influenza , seasonal, injectabl e DoD zoster vaccine live 2009 zzLef t Arm [id number] 121 Merck & Company Inc complet ed zoster vaccine live 09/06/10 Given Ambulat ory Pharmac y zoster vaccine live 2009 [id number] 121 Merck & Company Inc complet ed zoster vaccine live 09/06/10 Given Ambulat ory Pharmac y zoster vaccine, live 1 2009 Unknown, Provider [id number] 121 Merck (MSD) complet ed zoster vaccine, live DoD pneumococcal polysaccharid e, 23 valent 2009 zzLef t Arm [id number] 33 Merck & Company Inc complet ed pneumococ sowmya polysacch aride, 23 valent 08/23/10 Given Ambulat ory Pharmac y pneumococcal polysaccharid e, 23 valent 2009 [id number] 33 Merck & Company Inc complet ed pneumococ sowmya polysacch aride, 23 valent 08/23/10 Given Ambulat ory Pharmac y pneumococcal polysaccharid e vaccine, 23 valent 1 2009 Unknown, Provider [id number] Merck (MSD) complet ed pneumococ sowmya polysacch aride vaccine, 23 valent DoD influenza virus vaccine,split 2006 zAlvaro Arm [id number] 15 [employer] complet ed influenza virus vaccine,s plit 08/22/07 Given Ambulat ory Pharmac y influenza virus vaccine,split 2006 [id number] 15 GlaxoSmithKli ne complet ed influenza virus vaccine,s plit 08/22/07 Given Ambulat ory Pharmac y influenza virus vaccine, split virus (incl. purified surface antigen)-reti red CODE 1 2006 Unknown, Provider [id number] 15 [employer] (SKB) complet ed influenza virus vaccine, split virus (incl. purified surface antigen)- retired CODE DoD influenza virus vaccine,split 2005 zzLef t Arm [id number] 15 GlaxoSmithKli ne complet ed influenza virus vaccine,s plit 08/28/06 Given Ambulat ory Pharmac y influenza virus vaccine,split 2005 [id number] 15 GlaxoSmithKli ne complet ed influenza virus vaccine,s plit 08/28/06 Given Ambulat ory Pharmac y influenza virus vaccine, split virus (incl. purified surface antigen)-reti red CODE 1 2005 Unknown, Provider [id number] 15 [facility] ([facility]) complet ed influenza virus vaccine, split virus (incl. purified surface antigen)- retired CODE DoD influenza virus vaccine,split 2005 zzLef t Arm [id number] 15 sanofi pasteur complet ed influenza virus vaccine,s plit 11/02/05 Given Ambulat ory Pharmac y influenza virus vaccine, split virus (incl. purified surface antigen)-reti red CODE 1 2005 Unknown, Provider [id number] 15 Sanofi Pasteur ([facility]) complet ed influenza virus vaccine, split virus (incl. purified surface antigen)- retired CODE DoD hepatitis B adult vaccine 2000 zzLef t Arm 43 complet ed hepatitis B adult vaccine 12/24/00 Given Ambulat ory Pharmac y hepatitis B adult vaccine 2000 43 complet ed hepatitis B adult vaccine 12/24/00 Given Ambulat ory Pharmac y hepatitis B vaccine, adult dosage 3 2000 Unknown, Provider 43 Transcribed (TRS) complet ed hepatitis B vaccine, adult dosage DoD hepatitis A adult vaccine 1999 zzLef t Arm 52 complet ed hepatitis A adult vaccine 10/23/99 Given Ambulat ory Pharmac y hepatitis A adult vaccine 1999 52 complet ed hepatitis A adult vaccine 10/23/99 Given Ambulat ory Pharmac y hepatitis A vaccine, adult dosage 2 1999 Unknown, Provider 52 Transcribed (TRS) complet ed hepatitis A vaccine, adult dosage DoD yellow fever vaccine 1998 37 complet ed yellow fever vaccine 01/16/99 Given Ambulat ory Pharmac y yellow fever vaccine 1998 37 complet ed yellow fever vaccine 01/16/99 Given Ambulat ory Pharmac y yellow fever vaccine 1 1998 Unknown, Provider 37 Transcribed (TRS) complet ed yellow fever vaccine DoD tetanus-dipht h toxoids (Td) adult/adol 1996 09 complet ed tetanus-d iphth toxoids (Td) adult/ado l 03/18/97 Given Ambulat ory Pharmac y tetanus-dipht h toxoids (Td) adult/adol 1996 09 complet ed tetanus-d iphth toxoids (Td) adult/ado l 03/18/97 Given Ambulat ory Pharmac y tetanus and diphtheria toxoids, adsorbed, preservative free, for adult use (2 Lf of tetanus toxoid and 2 Lf of diphtheria toxoid) 1 1996 Unknown, Provider 09 Transcribed (TRS) complet ed tetanus and diphtheri a toxoids, adsorbed, preservat tessa free, for adult use (2 Lf of tetanus toxoid and 2 Lf of diphtheri a toxoid) [facility] poliovirus vaccine, live, oral 1993 zzLef t Arm 02 complet ed polioviru s vaccine, live, oral 08/21/94 Given Ambulat ory Pharmac y measles virus vaccine 1993 05 complet ed measles virus vaccine 08/21/94 Given Ambulat ory Pharmac y poliovirus vaccine, live, oral 1993 02 complet ed polioviru s vaccine, live, oral 08/21/94 Given Ambulat ory Pharmac y measles virus vaccine 1993 05 complet ed measles virus vaccine 08/21/94 Given Ambulat ory Pharmac y trivalent poliovirus vaccine, live, oral 1 1993 Unknown, Provider 02 Transcribed (TRS) complet ed trivalent polioviru s vaccine, live, oral DoD measles virus vaccine 1 1993 Unknown, Provider 05 Transcribed (TRS) complet ed measles virus vaccine [facility] Vital Signs Combined list of inpatient and outpatient Vital Signs from Department of Defense and Veterans Affairs, ranging from 12 months to all on record, depending upon the facility. Vital Sign Value Date Comments Source SYSTOLIC BLOOD PRESSURE 178 01/07/2025 09:10:24 [facility] DIASTOLIC BLOOD PRESSURE 96 01/07/2025 09:10:24 [facility] PULSE OXIMETRY 98 01/07/2025 09:10:24 [facility] WEIGHT 161.8 01/07/2025 09:10:24 [facility] PAIN 0 01/07/2025 09:10:24 [facility] TEMPERATURE 97.8 01/07/2025 09:10:24 [facility] PULSE 59 01/07/2025 09:10:24 [facility] RESPIRATION 16 01/07/2025 09:10:24 [facility] Encounters Combined list of: 1) Encounters from Department of Veterans Affairs facilities going backup to the last 18 months, not all [place] inpatient encounters are included; 2) Encounters from the Department of [facility] facilities going backup to 280 months. Location Location Details Encounter Type Encounter Number Reason For Visit Attending Provider ADM Date DC Date Status Disposition Source [address] [place] [address] [facility] TELE CONSULT [id number] need refill meds on flomax .4mg and proscar 5mg LEXIE RIVERA 01/[address] [place] [address] [facility] [address] [place] [address] [facility]) OUTPATIENT [id number] follow- up appt LEXIE RIVERA 02/09 Released w/o Limitations [address] [place] [address] [facility] [address] [place] [address] Cory [facility] OUTPATIENT [id number] flowrat e LEXIE RIVERA 03/28 Released w/o Limitations [address] [place] [address] [facility] [address] [place] [address] [facility] Non-GME FHI1) TELE CONSULT [id number] Rx Renew Complet juice Out MATHEUS Boone 06/[address] [place] [address] [employer] ([facility]F amily Practic e Non-GME FHI1) [address] [place] [address] [employer] ([facility]Uro logy) OUTPATIENT [id number] f/u PSA YAO HUTCHINSON 07/04 Released w/o Limitations [address] [place] [address] [employer] ([facility]U rology) [address] [place] [address] [employer] ([facility]Uro logy) TELE CONSULT [id number] please call about prescri ption refill see notes YAO HUTCHINSON 07/[address] [place] [address] [employer] ([facility]U rology) [address] [place] [address] [employer] ([facility]Fam he Practice Non-GME FHI1) OUTPATIENT [id number] F/U B/P SARINA MISTRY 07/11 Released w/o Limitations [address] [place] [address] [employer] ([facility]F amily Practic e Non-GME FHI1) [address] [place] [address] [employer] ([facility] Medicine) OUTPATIENT [id number] HYPERLI PIDEMIA DAVID BUTTS 07/22 Released w/o Limitations [address] [place] [address] [employer] ([facility]N utritio nal Medicin e) [address] [place] [address] [employer] ([facility])([facility] he Practice Non-GME FHI1) TELE CONSULT [id number] REFERRA Jenna JAMES JENNY M 08/[address] [place] [address] [employer] ([facility])(F amily Practic e Non-GME FHI1) [address] [place] [address] [employer] ([facility])(Uro logy) TELE CONSULT [id number] PSA results YAO HUTCHINSON 08/[address] [place] [address] [employer] ([facility]U rology) [address] [place] [address] [employer] ([facility]) OUTPATIENT [id number] DAVID BUTTS 08/26 Released w/o Limitations [address] [place] [address] [employer] ([facility]N utritio nal Medicin e) [address] [place] [address] [employer] ([facility]Uro logy) OUTPATIENT [id number] discuss psa results YAO HUTCHINSON 09/07 Released w/o Limitations [employer] [facility] [employer] ([facility]U rology) [facility] [employer] ([facility]) OUTPATIENT [id number] BRAMBILACANELO 09/28 Released w/o Limitations [employer] [facility] [employer] ([facility])(N utritio nal Medicin e) [facility]Uro logy) OUTPATIENT [id number] TRUS YAO HUTCHINSON Rivera 10/12 Released w/o Limitations [employer] [facility] [employer] ([facility]U rology) [facility] B ([facility])([facility] tt Internal Medicine Tm) OUTPATIENT [id number] new pt JACINTO, ASSKristopher 10/31 Released w/o Limitations [employer] [facility] [employer] ([facility])(S cott Interna l Medicin e Tm) [facility] tt Internal Medicine Tm) OUTPATIENT [id number] olga tristan, ASSY 03/09 Released w/o Limitations [facility] Cory [facility] ([facility] [place] [facility]S cott Interna l Medicin e Tm) [facility] [place] [facility] [place] [facility] tt Internal Medicine Tm) TELE CONSULT [id number] order for psa THERESA PANTOJA 05/30[facility] Cory [place] ([facility] [place]S cott Interna l Medicin e Tm) [address] [place] [address] [facility] [place] [facility] [place] [facility] tt Internal Medicine Tm) OUTPATIENT [id number] f/u lab work and meds LUIS F [place] 06/27 Released w/o Limitations [facility] Cory [place] ([facility] [place]S cott Interna l Medicin e Tm) [facility] Cory [place] ([facility] [place] [place] [facility] tt Internal Medicine Tm) TELE CONSULT [id number] blood work for cholest carmen and psa PERCY ESCALANTE 12/[address] [place] [address] Group Cory [place] ([facility] [place])(S cott Interna l Medicin e Tm) [facility] Medical [facility] Cory [place] [facility] [place] [facility] tt Internal Medicine Tm) OUTPATIENT [id number] f/u prostat e and cholest carmen LUIS F [place] 12/25 Released w/o Limitations [address] [place] [address] Group Cory [facility] ([facility] [place]S cott Interna l Medicin e Tm) [facility] Medical [facility] Cory [facility])([facility] Internal Medicine ) TELE CONSULT [id number] lab work ROSA MCARTHUR 05/[address] [place] [address] Cory [facility])(S cott Interna l Medicin e Tm) [address] [place] [address] Cory [facility])([facility] Internal Medicine ) OUTPATIENT [id number] f/u psa and labs GIOCHRISTINA MalaveTH CPT 06/13 Released w/o Limitations [address] [place] [address] Cory [facility] ([facility] [place]S cott Interna l Medicin e Tm) [address] [place] [address] Cory [facility])([facility] Internal Medicine ) TELE CONSULT [id number] Request ing lab work GLORIA VELÁZQUEZ 04/[address] [place] [address] Cory [facility])(S cott Interna l Medicin e Tm) [address] [place] [address] Cory [facility])([facility] Internal Medicine ) OUTPATIENT [id number] fu for blood work... [phone] LUIS F AL 04/14 Released w/o Limitations [address] [place] [address] Cory [facility])(S cott Interna l Medicin e Tm) [address] [place] [address] Cory [facility])([facility] Internal Medicine ) OUTPATIENT [id number] [phone] BLOOD IN URINE (EBER) , SLLIGHT BURNING W/URINA ISRAEL THOMPSON 05/05 Released w/o Limitations [address] [place] [address] Cory [facility])(S cott Interna l Medicin e Tm) [address] [place] [address] Cory [facility])([facility] Internal Medicine ) TELE CONSULT [id number] lab /rad after Apr ROSA MCARTHUR 05/[address] [place] [address] Cory [facility])(S cott Interna l Medicin e Tm) [address] [place] [address] Cory [facility])([facility] Internal Medicine ) TELE CONSULT [id number] CT scan results ROSA MCARTHUR 05/[address] [place] [address] Cory [facility])(S cott Interna l Medicin e Tm) [facility])([facility] Internal Medicine ) TELE CONSULT [id number] La b work after March 25 ALEXISLUIS F DONOVAN Jenna 07/[address] [place] [address])(S cott Interna l Medicin e Tm) [address] [place] [address])([facility] Internal Medicine ) OUTPATIENT [id number] [phone] follow up on labs for cholest carmen ALEXIS LUIS F L 08/07 Released w/o Limitations [address] [place] [address])(S cott Interna l Medicin e Tm) [address] [place] [address] Cory [facility])([facility] Internal Medicine ) TELE CONSULT [id number] Referra l needed ROSA MCARTHUR 08/[address] [place] [address])(S cott Interna l Medicin e Tm) [address] [place] [address])([facility] Internal Medicine ) TELE CONSULT [id number] upcomin g surgery ROSA MCARTHUR 08/[address] [place] [address] Cory [facility])(S cott Interna l Medicin e Tm) [address] [place] [address])([facility] Internal Medicine ) TELE CONSULT [id number] Lab work after Jul 26 ALEXISCHANCE DONOVANJOSELUIS West 09/[address] [place] [address] Cory [facility])(S cott Interna l Medicin e Tm) [address] [place] [address])([facility] Internal Medicine ) OUTPATIENT [id number] fu for prostra te surgery ....[phone] LUIS F [place] 11/20 Released w/o Limitations [address] [place] [address])(S cott Interna l Medicin e Tm) [address] [place] [address] Cory [facility])([facility] Internal Medicine ) TELE CONSULT [id number] Medicat ion Refills ROSA MCARTHUR 02/[address] [place] [address])(S cott Interna l Medicin e Tm) - [facility] [id number] [facility] er for immuniz hayleyangelique BOOKristopher LOPEZ 04/10 Discharge Disposition: Home or Self Care 5C-3 [address] [facility] Outpatient Encounter [id number] 12/24 [facility] Outpatient Encounter [id number] 12/26 [facility] PH1 ASSMT&MGMT NQHP 08-07 [id number] Diagnos is: ICD-10- CM Z71.9 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 Procedure Procedure Type Code Date Perfomer Comments Sourc e No data available for this section Ambulatory Pharmacy ULTRASOUND, TRANSRECTAL 10/12/19 06 [facility] MEDICAL NUTRITION THERAPY; GROUP (2 OR MORE INDIVIDUAL(S)), EACH 30 MINUTES 09/28/19 06 [facility] MEDICAL NUTRITION THERAPY; GROUP (2 OR MORE INDIVIDUAL(S)), EACH 30 MINUTES 08/24/20 05 [facility] MEDICAL NUTRITION THERAPY; GROUP (2 OR MORE INDIVIDUAL(S)), EACH 30 MINUTES 07/20/20 05 [facility] CYSTOURETHROSCOPY (SEPARATE PROCEDURE) 11/01/19 05 [facility] BIOPSY, PROSTATE; NEEDLE OR PUNCH, SINGLE OR MULTIPLE, ANY APPROACH 06/17/20 04 [facility] Biopsy Of The Prostate Needle Biopsy Of The Prostate Needle 40516 10/12/19 06 YAO HUTCHINSON [facility] Transrectal Sonogram of Prostate Transrectal Sonogram of Prostate 36997 10/12/19 06 YAO HUTCHINSON [facility] Medical Nutrition Therapy Group (2 or More Individual(s)) Medical Nutrition Therapy Group (2 or More Individual(s)) [id number] 09/28/19 06 CANELO BRAMBILA [facility] Medical Nutrition Therapy Group (2 or More Individual(s)) Medical Nutrition Therapy Group (2 or More Individual(s)) [id number] 08/26/20 05 DAVID BUTTS [facility] Medical Nutrition Therapy Group (2 or More Individual(s)) Medical Nutrition Therapy Group (2 or More Individual(s)) [id number] 07/22/20 05 DAVID BUTTS [facility] Social History Combined list of available smoking, tobacco, and other social history from Department of Defense and Veterans Affairs facilities. Social History Type Response Date Comment [facility] e Tobacco smoking status NHIS VA-TOBACCO NEVER USED CIGARETTES 01/06/2025 [facility] History of tobacco use CO-TOBACCO NEVER USED OTHER TYPE 01/06/2025 [facility] Sex Representation Male (finding) 11/10/2022 Un known Organization Sexual Orientation Ambula tory Pharmacy Gender identity Ambulator y Pharmacy This section is an empty social history section. [facility] Assessment and Plan Combined list of future care activities from Department of Defense and Veterans Affairs facilities (e.g., assessment and plan notes, appointments, orders, and referrals). Additional future care activities may be listed in the Plan of Care section. Result Assessment and Plan Date Source Assessment and Plan Extracted from:Title : Imms Td Author: COY WALLER Date: 04/10/24 Adult Screening Questionnaire 1. Are you sick today? No 2. Do you have allergies to medication food, a vaccine component, or latex? No 3. Have you ever had a serious reaction after receiving a vaccination? No 4. Do you have a senior care health problem with heart, lung, kidney, metabolic disease (e.g., diabetes), asthma, a blood disorder, no spleen, compliment component deficiency, a cochlear implant, or a spinal fluid leak? No Are you on senior care aspirin therapy? No 5. Do you, or a close family member, have cancer, leukemia, HIV/AIDS, or any other immune system problems? No 6. In the past 3 months, have you taken medications, that effect your immune system, such as prednisone, other steroids, or anti-cancer drugs; drugs for treatment of Rheumatoid Arthritis, Crohn's disease, or psoriasis; or have you had radiation treatment? No 7. Have you had a seizure or a brain or other nervous system problems? No 8. During the past year, have you received a transfusion of blood or blood products, or been given immune (gamma) globulin, or an anti-viral drug? No 9. Have you received any vaccinations in the past month? No tetanus-diphth toxoids (Td) adult/adol: 0.5 mL (04/10/24 14:01:00) Diagnosis: 1. Vaccination given Comment: Ordered: Unlisted E&M Service [id number]; 04/10/2024 14:01:00 CDT by MAHI JOSHI MD Other status: tetanus-diphtheria toxoids [Td] adult/adolescent; 0.5 mL, IntraMuscular, Suspension-Injection, Vaccine, First Dose: 04/10/2024 14:00:00 CDT, 04/10/2024 14:00:00 CDT (Completed) by MAHI JOSHI MD Imadm Prq Id Subq/Im Njxs 1 Vaccine [id number]; 04/10/2024 14:01:00 CDT (Completed) by MAHI JOSHI MD End of Orders More details of the vaccination administered can be found in the patient s Immunization History under the Immunizations tab. 01/20/2025 [id number] [facility] Plan of Care List of future care activities from Department of Veterans Affairs facilities. Additional future care activities may be listed in the Assessment and Plan section. Date/Time Care Activity Care Activity Detail Facili ty 03/12/2025 AMBULATORY - SURGERY AMBULATORY - SURGERY [facility] Functional Status Combined list of recent functional and cognitive assessments recorded at Department of Defense and Veterans Affairs (VA).VA Functional [place] Measurement (FIM) Scale: 1 = Total Assistance (Subject = 0% +), 2 = Maximal Assistance (Subject = 25% +), 3 = Moderate Assistance (Subject = 50% +), 4 = Minimal Assistance (Subject = 75% +), 5 = Supervision, 6 = Modified [place] (Device), 7 = Complete [place] (Timely, Safely). Assessment Date/Time Source Assessment Type Assessment Skill Assessment Score Assessment Details No data available for this section
--- OUTSIDE RECORDS SUMMARY | 2025-01-20 12:21 | XMS_ITS | Data Portability ---
Author Organization [place] - [facility] [place], Main Office Address [address] [place] [address] Assessment No assessment recorded. Plan of Treatment Reminders Order Date Submit Date Provider Last Modified By Organization Details Last Modified Time Details Appointments Medicare Wellness 15 2024 10:45A M Raffaele Dumas MD Not available Not available Not available Lab PSA, serum or plasma [address] (Lab), [address] [place], [address], 05/08/2024 08:39:50 unlisted lab - CBC study [address] (Lab), [address] [place], [address], 05/08/2024 08:40:00 CMP, serum or plasma 2023 024 [facility] (Lab), [address] [place], [address], 05/01/2024 19:50:09 lipid panel, serum 2023 024 [facility] (Lab), [address] [place], [address], 05/01/2024 19:50:14 PSA, total, serum or plasma 2023 024 [facility] (Lab), [address] [place], [address], 05/01/2024 20:23:59 glycohemo globin, total, blood 2023 024 [facility] ([facility]), [address] [place], [address], 05/01/2024 21:21:09 Referral None recorded. Procedures None recorded. Surgeries None recorded. Imaging None recorded. Medication Orders sildenafi l 100 mg tablet 2024 025 [facility], [address] [place] [address], [id number], 10/31/2024 09:32:53 sildenafi l 100 mg tablet 2023 024 [facility], [address] [place] [address], [id number], 10/30/2023 16:12:13 Patient TargetsNo targets recorded. Patient Instructions Encounter Date Encounter Id Patient Instructions Last Modified By Organization Details Last Modified Time 05/01/2024 [id number] dementia rating scale-2* Not available 05/01/2024 14:44:20 alcohol misuse* Not available 05/01/2024 14:44:20 depression screening* Not available 05/01/2024 14:44:20 multi-dimensiona l health assessment questionnaire* Not available 05/01/2024 14:44:20 advance care planning: care instructions Not available 05/01/2024 14:44:20 advance directiv es: care instructions Not available 05/01/2024 14:44:20 [place] Advance Directives Not available 05/01/2024 14:44:20 Personalized [facility] Plan and Screening Recommendations Advance Directives - Do you have one? No You have indicated that you are capable of preparing your advance care directive Advance Directives - Do we have your advance directive on file in your health record? No, please bring in a copy at your earliest convenience Primary Prevention/Interven tion (prevents or decreases the chance of common diseases from occurring) Smoking Risk: Non Smoker Alcohol Misuse Screening: Negative Weight: Appropriate Physical activity: Need more exercise/physical activity minimum of 10-20 minutes of activity that causes mild breathlessness/day Nutrition: Good Average Fall Risk (screened today): Low Refer to attached handout Preventing Falls: After your Visit Vaccines Pneumococcal: Ordered Recommended today Influenza: Your next one in the fall of this year Chronic Disease Risks Stroke: Low Risk I have no recommendations Heart Attack: Low risk I have no recommendations Clogging of the Arteries: Low risk I have no recommendations Diabetes: Low Risk I have no recommendations Secondary Prevention/Interven tion (detects treatable diseases before they may cause symptoms, disability, or ) Prostate Cancer Screening: No PSA screening necessary Colon Cancer Screening: No screening necessary Date Screening Last Performed:2022_ Eye Disease Screening: No Eye exam necessary Dementia Risk: Low I have no recommendations Depression Screening: Negative [email or web address] Not available 05/01/2024 11:54:55 Reason for Referral None Reported. Results Created Date Observation Date Name Description Value Unit Range Abnormal Flag Note LastModifiedBy Organization Detail LastModifiedTime 05/01/20 24 05/01/2024 CBC/C OMPLE TE BLD COUNT W/DIF F white blood cells 4.8 x10'3 /uL 4.2-10 .8 Not Available [facility] (Lab) [address] [place], [address], 05/01/2024 19:46:16 05/01/20 24 05/01/2024 CBC/C OMPLE TE BLD COUNT W/DIF F red blood cells 4.98 x10'6 /uL 4.10-5 .80 Not Available [facility] (Lab) [address] [place], [address], 05/01/2024 19:46:16 05/01/20 24 05/01/2024 CBC/C OMPLE TE BLD COUNT W/DIF F hemoglobin 14.5 g/dL 13.2-1 7.0 Not Available [facility] (Lab) [address] [place], [address], 05/01/2024 19:46:16 05/01/20 24 05/01/2024 CBC/C OMPLE TE BLD COUNT W/DIF F hematocrit 46.3 % 39.3-5 0.0 Not Available [facility] (Lab) [address] [place], [address], 05/01/2024 19:46:16 05/01/2005/01/2024 CBC/C OMPLE TE BLD COUNT W/DIF F mean red cell volume 93.0 fL 80.0-9 7.0 Not Available [facility] (Lab) [address] [place], [address], 05/01/2024 19:46:16 05/01/20 24 05/01/2024 CBC/C OMPLE TE BLD COUNT W/DIF F mean red cell hemoglobin 29.1 pg 27.0-3 3.0 Not Available [facility] (Lab) [address] [place], [address], 05/01/2024 19:46:16 05/01/20 24 05/01/2024 CBC/C OMPLE TE BLD COUNT W/DIF F mean RBC HGB concentratio n 31.3 g/dL 31.0-3 6.0 Not Available [facility] (Lab) [address] [place], [address], 05/01/2024 19:46:16 05/01/20 24 05/01/2024 CBC/C OMPLE TE BLD COUNT W/DIF F red cell distribution width 13.4 % 11.8-1 5.5 Not Available [facility] (Lab) [address] [place], [address], 05/01/2024 19:46:16 05/01/20 24 05/01/2024 CBC/C OMPLE TE BLD COUNT W/DIF F platelets 170 x10'3 /uL 150-40 0 Not Available [facility] (Lab) [address] [place], [address], 05/01/2024 19:46:16 05/01/20 24 05/01/2024 CBC/C OMPLE TE BLD COUNT W/DIF F mean platelet volume 11.7 fL 9.0-12 .4 Not Available [facility] (Lab) [address] [place], [address], 05/01/2024 19:46:16 05/01/20 24 05/01/2024 CBC/C OMPLE TE BLD COUNT W/DIF F neutrophils 66.5 % 39.0-7 2.0 Not Available [facility] (Lab) [address] [place], [address], 05/01/2024 19:46:16 05/01/2005/01/2024 CBC/C OMPLE TE BLD COUNT W/DIF F lymphocytes 17.6 % 16.0-4 7.0 Not Available [facility] (Lab) [address] [place], [address], 05/01/2024 19:46:16 05/01/2005/01/2024 CBC/C OMPLE TE BLD COUNT W/DIF F monocytes 8.8 % 5.0-12 .0 Not Available [facility] (Lab) [address] [place], [address], 05/01/2024 19:46:16 05/01/2005/01/2024 CBC/C OMPLE TE BLD COUNT W/DIF F eosinophils 6.3 % 1.0-7. 0 Not Available [facility] (Lab) [address] [place], [address], 05/01/2024 19:46:16 05/01/2005/01/2024 CBC/C OMPLE TE BLD COUNT W/DIF F basophils 0.4 % 0.0-2. 0 Not Available [facility] (Lab) [address] [place], [address], 05/01/2024 19:46:16 05/01/2005/01/2024 CBC/C OMPLE TE BLD COUNT W/DIF F immature granulocytes 0.4 % 0.00-0 .50 Not Available [facility] (Lab) [address] [place], [address], 05/01/2024 19:46:16 05/01/2005/01/2024 CBC/C OMPLE TE BLD COUNT W/DIF F neutrophils, absolute count 3.18 x10'3 /uL 1.5-8. 0 Not Available [facility] (Lab) [address] [place], [address], 05/01/2024 19:46:16 05/01/2005/01/2024 CBC/C OMPLE TE BLD COUNT W/DIF F lymphocytes, absolute count 0.84 x10'3 /uL 1.07-3 .43 low Not Available [facility] (Lab) [address] [place], [address], 05/01/2024 19:46:16 05/01/20 24 05/01/2024 CBC/C OMPLE TE BLD COUNT W/DIF F monocytes, absolute count 0.42 x10'3 /uL 0.29-0 .99 Not Available [facility] (Lab) [address] [place], [address], 05/01/2024 19:46:16 05/01/20 24 05/01/2024 CBC/C OMPLE TE BLD COUNT W/DIF F eosinophils, absolute count 0.30 x10'3 /uL 0.02-0 .53 Not Available [facility] (Lab) [address] [place], [address], 05/01/2024 19:46:16 05/01/2005/01/2024 CBC/C OMPLE TE BLD COUNT W/DIF F basophils, absolute count 0.02 x10'3 /uL 0.01-0 .08 Not Available [facility] (Lab) [address] [place], [address], 05/01/2024 19:46:16 08/14/20 24 05/01/2024 CBC/C OMPLE TE BLD COUNT W/DIF F immature granulocytes ,absolute 0.02 x10'3 /uL 0.00-0 .05 Not Available [facility] (Lab) [address] [place], [address], 05/01/2024 19:46:16 05/01/20 24 05/01/2024 CBC/C OMPLE TE BLD COUNT W/DIF F nucleated red blood cells 0.0 % -0 Not Available [facility] (Lab) [address] [place], [address], 05/01/2024 19:46:16 05/01/20 24 05/01/2024 CBC/C OMPLE TE BLD COUNT W/DIF F NRBC# 0.00 x10'3 /uL Not Available [facility] (Lab) [address] [place], [address], 05/01/2024 19:46:16 05/01/20 24 05/01/2024 COMPR EHENS MYNOR METAB OLIC PANEL sodium 139 mmol/ L 137-14 5 Not Available [facility] (Lab) [address] [place], [address], 05/01/2024 19:50:09 05/01/20 24 05/01/2024 COMPR EHENS MYNOR METAB OLIC PANEL potassium 4.4 mmol/ L 3.5-5. 1 Not Available [facility] (Lab) [address] [place], [address], 05/01/2024 19:50:09 05/01/20 24 05/01/2024 COMPR EHENS MYNOR METAB OLIC PANEL chloride 106 mmol/ L 98-107 Not Available [facility] (Lab) [address] [place], [address], 05/01/2024 19:50:09 05/01/20 24 05/01/2024 COMPR EHENS MYNOR METAB OLIC PANEL carbon dioxide 28 mmol/ L 22-30 Not Available [facility] (Lab) [address] [place], [address], 05/01/2024 19:50:09 05/01/20 24 05/01/2024 COMPR EHENS MYNOR METAB OLIC PANEL anion gap 9.4 mmol/ L 14-22 low Not Available [facility] (Lab) [address] [place], [address], 05/01/2024 19:50:09 05/01/20 24 05/01/2024 COMPR EHENS MYNOR METAB OLIC PANEL glucose 103 mg/dL 70-99 high Not Available [facility] (Lab) [address] [place], [address], 05/01/2024 19:50:09 05/01/20 24 05/01/2024 COMPR EHENS MYNOR METAB OLIC PANEL BUN 13 mg/dL 8-19 Not Available [facility] (Lab) [address] [place], [address], 05/01/2024 19:50:09 05/01/20 24 05/01/2024 COMPR EHENS MYNOR METAB OLIC PANEL creatinine 0.75 mg/dL 0.66-1 .25 Not Available [facility] (Lab) [address] [place], [address], 05/01/2024 19:50:09 05/01/2005/01/2024 COMPR EHENS MYNOR METAB OLIC PANEL GFR >60 Refer ence Range : [place] ge GFR Healt hy Adult : >60 mL/mi n/1.7 3 m2 Chron ic Kidne y Disea se: 15-60 mL/mi n/1.7 3 m2 Kidne y Failu re: <15/m L/min /1.73 m2 www.n iddk. nih.g ov The MDRD study equat ion has not been valid ated in child edmond <18 years of age; pregn ant women ; the elder ly >85 years of age; or in some racia l or ethni c subgr oups, such as Hispa nics. Outsi de the valid ated yonatan eters , estim ated GFR is less accur ate, requi ring clini sowmya judgm ent on a case- by-ca se basis . Clini sowmya inter preta tion for other races and ages must be made by the clini margret. The MDRD study equat ion has not been valid ated for the evalu ation of serum creat inine relat ed to nutri christal l statu s or medic ation usage . For perso ns <18 years of age, a pedia tric GFR calcu lator is avail able on the [facility] websi te: https ://rosita scales.madie marroquin.sonia maher/pr ofess ional s/kdo qi/gf r_cal culat or Not Available [facility] (Lab) [address] [place], [address], 05/01/2024 19:50:09 05/01/20 24 05/01/2024 COMPR EHENS MYNOR METAB OLIC PANEL alkaline phosphatase 79 U/L 38-126 Not Available [facility] (Lab) [address] [place], [address], 05/01/2024 19:50:09 05/01/20 24 05/01/2024 COMPR EHENS MYNOR METAB OLIC PANEL alanine aminotransfe rase 16 U/L 0-50 Not Available [facility] (Lab) [address] [place], [address], 05/01/2024 19:50:09 05/01/20 24 05/01/2024 COMPR EHENS MYNOR METAB OLIC PANEL aspartate aminotransfe rase 27 U/L 15-46 Not Available [facility] (Lab) [address] [place], [address], 05/01/2024 19:50:09 05/01/20 24 05/01/2024 COMPR EHENS MYNOR METAB OLIC PANEL bilirubin, total 1.10 mg/dL 0.20-1 .30 Not Available [facility] (Lab) [address] [place], [address], 05/01/2024 19:50:09 05/01/20 24 05/01/2024 COMPR EHENS MYNOR METAB OLIC PANEL calcium 9.6 mg/dL 8.4-10 .2 Not Available [facility] (Lab) [address] [place], [address], 05/01/2024 19:50:09 05/01/20 24 05/01/2024 COMPR EHENS MYNOR METAB OLIC PANEL total protein 7.1 g/dL 6.3-8. 2 Not Available [facility] (Lab) [address] [place], [address], 05/01/2024 19:50:09 05/01/20 24 05/01/2024 COMPR EHENS MYNOR METAB OLIC PANEL albumin 4.3 g/dL 3.0-4. 4 Not Available [facility] (Lab) [address] [place], [address], 05/01/2024 19:50:09 05/01/20 24 05/01/2024 COMPR EHENS MYNOR METAB OLIC PANEL globulin 2.8 g/dL 2.6-4. 2 Not Available [facility] (Lab) [address] [place], [address], 05/01/2024 19:50:09 05/01/20 24 05/01/2024 COMPR EHENS MYNOR METAB OLIC PANEL A/G ratio 1.5 ratio 1.0-2. 0 Not Available [facility] (Lab) [address] [place], [address], 05/01/2024 19:50:09 05/01/20 24 05/01/2024 LIPID PANEL cholesterol 210 mg/dL 140-19 9 high NIH MALIA NSUS RECOM MENDA TION FOR GERONIMO STERO L: ADULT CHILD LOW RISK: <200 <170 BORDE RLINE : <200- 239 ----- HIGH RISK: >240 >200 Not Available [facility] (Lab) [address] [place], [address], 05/01/2024 19:50:14 05/01/20 24 05/01/2024 LIPID PANEL triglyceride s 75 mg/dL 0-150 NIH MALIA NSUS REPOR T RECOM MENDA TION FOR TRIGL YCERI DIAMOND: ADULT CHILD LOW RISK: <150 ----- BODER LINE: 150-1 99 ----- HIGH RISK: >200 ----- Not Available [facility] (Lab) [address] [place], [address], 05/01/2024 19:50:14 05/01/2005/01/2024 LIPID PANEL HDL cholesterol 66 mg/dL 40- Not Available [facility] (Lab) [address] [place], [address], 05/01/2024 19:50:14 05/01/20 24 05/01/2024 LIPID PANEL LDL cholesterol, calculated 129 mg/dL 0-130 NIH MALIA NSUS REPOR T RECOM MENDA TIONS FOR LDL: ADULT CHILD LOW RISK <130 <110 (OPTI MAL LDL) <100 ----- BORDE RLINE : 130-1 59 ----- HIGH RISK: >160 >130 A TRIGL YCERI DE RESUL T >400 INVAL IDATE S THE CALCU LATIO N FOR LDL FRACT IONAT ION - THE LDL RESUL T WILL NOT BE REPOR DELMA. Not Available [facility] (Lab) [address] [place], [address], 05/01/2024 19:50:14 05/01/2005/01/2024 PSA SCREE N PSA medicare screen <0.064 NG/mL 0.00-4 .00 Not Available [facility] (Lab) [address] [place], [address], 05/01/2024 21:18:12 08/14/20 24 05/01/2024 HEMOG LOBIN A1C HA1C 5.7 % 4.0-6. 0 Diabe toya Davide henri Crite lashanda: <5.7% Consi stent with absen ce of diabe toya 5.7-6 .4% Consi stent with incre ased risk for diabe toya (pred iabet es) >OR=6 .5% Consi stent with diabe toya REFER ENCE: Diabe toya Care 2016, 39(Wilcox ppl.1 ):s13 -s22 Not Available [facility] ([facility]) [address] [place], [address], 05/01/2024 21:21:09 Result Notes None recorded. Problems Name Problem SNOMED Code Status Onset Date Resolution Date Notes Provider Name and Address Organization Details Recorded Time Malignant neoplasm of prostate 734424520 Active 2023 Judith lott RMA elizabeth, [facility] 4 09:21:18 Erectile dysfunction 081532050 Active 2023 Judith lott RMA elizabeth, [facility] 4 09:21:13 Prediabetes 837357420 Active 2023 Judith lott RMA elizabeth, [facility] 5 09:13:04 Problem Notes None recorded. Procedures Surgical History Date Name Laterality Status Provider Name and Address Organization Details Recorded Time 05/01/20 Medicare Wellness CPT Code, subsequent completed BEAU Baca [place] [facility] 05/01/2024 09:46:34 05/01/20 24 Advanced Care Planning completed BEAU Baca [place] [facility] 05/01/2024 11:50:45 prostatectomy completed MIGUEL Dee [facility] [employer] [facility] 10/30/2023 15:41:07 Hernia Surgery completed MIGUEL Dee [facility] [employer] [facility] 10/30/2023 15:41:19 Imaging Results None recorded. Procedure Notes None recorded. Medical Equipment None Reported. Medications Name Sig Start Date Stop Date Status Note LastModified by Organization Details LastModified Time Iron (ferrous sulfate) 325 mg (65 mg iron) tablet Take 1 tablet every day by oral route. active OTC Not Available Not Available No t Available aspirin 81 mg tablet,delay ed release active Not Available Not Available N ot Available sildenafil 100 mg tablet Take 1 tablet every day by oral route as needed for 30 days. active Not Available Not Available No t Available Vitals Date Recorded Body weight Body temperature Heart rate Oxygen saturation Oxygen saturation in Arterial blood by Pulse oximetry Systolic blood pressure Diastolic blood pressure Provider Name and Address Organization Details Last Updated DateTime 4 59856.2 6 g 97.7 [degF] 64 /min 99 % 99 % 124 mm[Hg] 70 mm[Hg] Mayito Grady CMA [facility] [employer] 4 15:32:44 Date Recorded Body weight Body temperature Body mass index (BMI) Body height Heart rate Oxygen saturation Oxygen saturation in Arterial blood by Pulse oximetry Systolic blood pressure Diastolic blood pressure Provider Name and Address Organization Details Last Updated DateTime 4 31156.0 4 g 97.1 [degF] 21.2 kg/m2 180.34 cm 66 /min 98 % 98 % 144 mm[Hg] 90 mm[Hg] MIGUEL Barrett [facility] [employer] 4 09:24:05 Date Recorded Pain severity - 0-10 verbal numeric rating [Score] - Reported Provider Name and Address Organization Details Last Updated DateTime 05/01/2024 0 Adenike Rosen RN [employer] [facility] 05/01/2024 09:46:58 Date Recorded Body height Body mass index (BMI) Body weight Body temperature Heart rate Oxygen saturation Oxygen saturation in Arterial blood by Pulse oximetry Systolic blood pressure Diastolic blood pressure Provider Name and Address Organization Details Last Updated DateTime 5 180.34 cm 21.9 kg/m2 77364 g 97 [degF] 60 /min 98 % 98 % 144 mm[Hg] 76 mm[Hg] MIGUEL Barrett [facility] [employer] 5 09:12:46 Social History Question Answer Notes LastModified by Organization Details LastModified Time Tobacco Smoking Status Never Smoker Judith Escudero, MIGUEL johnson, [place] - [facility] [employer] 10/30/2023 15:38:08 Do You Have An Advance Directive? No Unsure Paperwork Provided 05/01/2024 [email or web address] Information not available 05/01/2024 What Is Your Level Of Alcohol Consumption? Occasional Information not available 10/30/2023 How Many Years Have You Consumed Alcohol? 60 18 Starting Age [email or web address] Information not available 05/01/2024 Are You Blind Or Do You Have Difficulty Seeing? No Information not available 10/30/2023 Is Blood Transfusion Acceptable In An Emergency? Yes Information not available 10/30/2023 What Is Your Level Of Caffeine Consumption? Moderate Information not available 10/30/2023 In The 14 Days Before Symptom Onset, Have You Had Close Contact With A Laboratory-conf irmed COVID-19 While That Case Was Ill? No Not Applicable [email or web address] Information not available 05/01/2024 In The 14 Days Before Symptom Onset, Have You Had Close Contact With A Person Who Is Under Investigation For COVID-19 While That Person Was Ill? No Not Applicable [email or web address] Information not available 05/01/2024 Are You Currently Employed? No Retired Information not available 10/30/2023 Are You Deaf Or Do You Have Serious Difficulty Hearing? Yes Decreased Hearing On Left [email or web address] Information not available 05/01/2024 What Type Of Diet Are You Following? REGULAR Information not available 10/30/2023 What Is The Highest Grade Or Level Of School You Have Completed Or The Highest Degree You Have Received? [id number] Information not available 10/30/2023 How Many Days Of Moderate To Strenuous Exercise, Like A Brisk Walk, Did You Do In The Last 7 Days? 2 [email or web address] Information not available 05/01/2024 On Those Days That You Engage In Moderate To Strenuous Exercise, How Many Minutes, On Average, Do You Exercise? 40 [email or web address] Information not available 05/01/2024 Have There Been Any Changes To Your Family Or Social Situation? No Information not available 10/30/2023 What Is The Fluoride Status Of Your Home? Fluoridated [email or web address] Information not available 05/01/2024 Are There Any Guns Present In Your Home? No [email or web address] Information not available 05/01/2024 Do You Use Insect Repellent Routinely? No Information not available 10/30/2023 Where Do You Live? SingleLevelHouse Information not available 10/30/2023 Presence Of Domestic Violence No [email or web address] Information not available 05/01/2024 Guns Present In The Home? No [email or web address] Information not available 05/01/2024 Are You Able To Care For Yourself? Yes [email or web address] Information not available 05/01/2024 Are You Blind Or Do Yo Have Difficulty Seeing? No [email or web address] Information not available 05/01/2024 Are You Deaf Or Do You Have Serious Difficulty Hearing? Yes [email or web address] Information not available 05/01/2024 General Stress Level? Moderate [email or web address] Information not available 05/01/2024 Live Alone Of With Others? With Others [email or web address] Information not available 05/01/2024 Do You Have A Medical Power Of Timber Framer? No [email or web address] Information not available 05/01/2024 What Was The Date Of Your Most Recent Tobacco Screening? 05/01/2024 [email or web address] Information not available 05/01/2024 How Many Children Do You Have? 6 [email or web address] Information not available 05/01/2024 Have You Ever Been Counseled For Unhealthy Alcohol Use? No Information not available 10/30/2023 Do You Have Any Pets? No Information not available 10/30/2023 What Is Your Relationship Status? Information not available 10/30/2023 Do You Use Your Seat Belt Or Car Seat Routinely? Yes Information not available 10/30/2023 Are You Sexually Active? No [email or web address] Information not available 05/01/2024 Do You Have Smoke And Carbon Monoxide Detectors In Your Home? Yes Information not available 10/30/2023 Are You Passively Exposed To Smoke? No Information not available 10/30/2023 Are There Any Smokers In Your House? No Information not available 10/30/2023 What Types Of Sporting Activities Do You Participate In? Rides Bike [email or web address] Information not available 05/01/2024 Do You Feel Stressed (tense, Restless, Nervous, Or Anxious, Or Unable To Sleep At Night)? [id number] Information not available 10/30/2023 Do You Use Any Illicit Or Recreational Drugs? No Information not available 10/30/2023 Do You Use Sunscreen Routinely? No Information not available 10/30/2023 Has Tobacco Cessation Counseling Been Provided? No Information not available 10/30/2023 Have You Recently Traveled Abroad? Yes Takes Cruises [email or web address] Information not available 05/01/2024 Do You Have Any Dietary Restrictions? No Information not available 10/30/2023 Do You Or Have You Ever Used Any Other Forms Of Tobacco Or Nicotine? No Information not available 10/30/2023 How Many Days In The Past Year Have You Consumed 5 Or More Drinks? 0 [email or web address] Information not available 05/01/2024 Sex: Male Functional Status Question Answer Note LastModified by Organizat ion Details LastModified Time Do you have difficulty walking or climbing stairs? No Information not available 10/30/2023 Do you have transportation difficulties? No Information not available 10/30/2023 Are you able to walk? [email or web address] Information not available 10/30/2023 Do you have difficulty doing errands alone? No Information not available 10/30/2023 Are you able to care for yourself? Yes Information n ot available 10/30/2023 Do you have difficulty dressing or bathing? No Information not available 10/30/2023 What is your exercise level? Occasional [email or web address] Information not available 05/01/2024 Mental Status Question Answer Note LastModified by Organization D etails LastModified Time Do you have difficulty concentrating, remembering or making decisions? No Information no t available 10/30/2023 Family History Relationship Description Onset Age of this Age Resolved Age Notes LastModified by Organization Details LastModified Time Father Heart disease during heart surg Not available 10/30/2023 15:33:23 Mother Diabetes mellitus Not available 15:34:10 Mother Family history of malignant neoplasm colon Not available 15:34:21 Unspecified Relation Diabetes mellitus cousin Not available 15:36:51 Medical History No medical history recorded. Past Encounters Encounter ID Performer Location Encounter Start Date Encounter Closed Date Diagnosis/Indication Diagnosis SNOMED-CT Code Diagnosis ICD10 Code Diagnosis Note [id number] Raffaele Dumas MD [facility] Internal Med [facility] [address] [facility] [place] [address] 10/30/2023 15:08:53 10/30/2023 16:25:08 Adult health examination 115059374 Z00.00 Colonoscop y- 2022- Dr. Sosa- Had prostatect omyFLU- 2Pneumo vax- Has had bothCOVID- Has had 3 Malignant neoplasm of prostate 679858597 C61 in remission History of hypertension 124552715 Z86.79 no meds needed Erectile dysfunction 860 670902 F52.21 meds help History of deep vein thrombosis 431999975 Z86.718 no recurrence [id number] Raffaele Dumas MD [facility] Internal [facility] [address] [place] [address] 05/01/2024 09:16:14 05/01/2024 10:59:56 Adult health examination [id number] Z00.00 Colonoscop y- 2022- Dr. Sosa- Had prostatect omyFLU- 2Pneumo vax- Has had bothCOVID- Has had 3 Malignant neoplasm of prostate 038612582 C61 in remission History of hypertension 718054774 Z86.79 no meds needed, little high today Erectile dysfunction 860 059438 F52.21 meds help History of deep vein thrombosis 301865327 Z86.718 no recurrence Screening for malignant neoplasm of prostate 808809057 Z12.5 Prediabetes 654259761 R7 3.03 watching diet Screening for disorder 359494792 Z13.9 [id number] Raffaele Dumas MD [facility] Internal Med [facility] [address] [place] [address] 10/31/2024 08:57:31 10/31/2024 09:36:21 Adult health examination [id number] Z00.00 Colonoscop y- 2022- Dr. Sosa- Had prostatect chrissy, 05/01/2024 FLU- 4Pneumo vax- Has had bothCOVID- Has had 3 Malignant neoplasm of prostate 828049208 C61 in remission History of hypertension 245506244 Z86.79 no meds needed, little high today Erectile dysfunction 860 755338 F52.21 meds help History of deep vein thrombosis 201034102 Z86.718 no recurrence Prediabetes 096940529 R7 3.03 watching diet Health Concerns Section Related Observation LastModified by Organization Detai ls LastModified Time None Recorded Concern Status LastModified by Organization Details LastModified Time None Recorded Advance Directives Directive N: unsure paperwork provided 05/01/2024 Payers Encounter Date Sequence Insurance Name Policy Number Policy Jernigan Covered Member ID Jernigan Member ID Guarantor Name 10/30/2023 1 MEDICARE-ND (MEDICARE) Ariel Ananda Yehling [id number] Ariel Yehling 10/30/2023 2 FOR LIFE () Ariel Judiing [id number] Ariel Yehling 05/01/2024 1 MEDICARE-ND (MEDICARE) Ariel A Yehling [id number] Ariel Yehling 05/01/2024 2 FOR LIFE () Ariel Jhonathanhling [id number] Ariel Yehling 10/31/2024 1 MEDICARE-ND (MEDICARE) Ariel A Yehling [id number] Ariel Yehling 10/31/2024 2 FOR LIFE () Ariel Yehling [id number] Ariel Yeing Notes Date Note Type Note Provider Name and Address Organization Details Recorded Time 10/30/2023 text/html Pt is a 78 y/o h ere today to establish care.His previous DrAshley was Sylvie, Pts is JEREMÍAS who also is a patient Prostate cancer- Prostatectomy in 2008, came back 5-6 yrs alter and had radiation and is now in remission. [facility]. will order next timeSee Dr. Pierre Pabon MD (oncologist) Had a DVT in his right arm in 1970, now on asa Anemia- On OTC iron, recent labs reviewed and nl Hypertension- was diag years ago was not on meds. b/p today is good, watching diet, no meds needed ED- on meds PRNMeds- Sildenafil 100mg as needed Raffaele Dumas MD [address], [place], [address], [employer] [facility] [place] 10/30/2023 16:20:02 05/01/2024 text/html Pt is here today for a 6 month follow up.Wishes to have labs today, YURY IS FASTING Prostate cancer- Prostatectomy in 2008, recurrence after 5-6 yrs later and had radiation and is now in remission. PSA done at [facility].Seen Dr. Pierre Pabon MD (oncologist) , not any more Had a DVT in his right arm in 1970, now on asa Anemia- On OTC iron, improved Hypertension- was diag years ago was not on meds. high today 144/90, watching diet ED- on meds PRNMeds- Sildenafil 100mg as needed Pre-diabetes- watching diet Raffaele Dumas MD [address], [place], [address], [employer] [facility] [place] 05/01/2024 14:44:40 10/31/2024 text/html Pt is here today for a 6 month follow up.Wishes to have labs today, YURY IS FASTING Prostate cancer- Prostatectomy in 2008, recurrence after 5-6 yrs later and had radiation and is now in remission. PSA done at [facility].Seen Dr. Pierre Pabon MD (oncologist) , not any more, psa .064 05/11 Had a DVT in his right arm in 1970, now on asa Anemia- On OTC iron, improved Hypertension- was diagnosed years ago was not on meds. watching diet, stays stable Hyperlipidemia- mild, HDL is 66, watching diet ED- on meds PRN, helpsMeds- Sildenafil 100mg as needed Pre-diabetes- watching diet, Has gained 5 lbs, A1c was 5.7 Raffaele Dumas MD [address], [place], [address], [place] [facility] 10/31/2024 09:35:49
--- OUTSIDE RECORDS SUMMARY | 2025-01-20 12:22 | XMS_ITS | Encounter Summary ---
Author Organization [facility] Address [address] [place] [address] Care Team Providers Care Tester Operator Name Role Phone Raffaele Dumas MD Primary Care Provider [phone] Encounter Details Date Type Department Care Team (Late Contact Info) Description 01/20/2025 Orders Only [facility] Oncology and Hematology - Jamal [address] [place] [address] Pierre Pabon MD [address] [place] [address] [address] [place] [phone] Chronic anemia (Primary Dx) Social History Tobacco Use Types Packs/Day Years Used Date Smoking Tobacco: Never Smokeless Tobacco: Never Sex and Gender Information Value Date Recorded Sex Assigned at Not on file Legal Sex Male 11:55 AM CDT Gender Identity Not on file Sexual Orientation Not on file documented as of this encounter Plan of Treatment Upcoming Encounters Date Type Department Care Team (Late Contact Info) Description 01/22/2025 11:00 AM CDT Office Visit [facility] Oncology and Hematology - Jamal [address] [place] [address] Pierre Pabon MD [address] [place] [address] [address] [place] [phone] Scheduled Orders Name Type Priority Associated Diagnoses Orde r Schedule COMPREHENSIVE METABOLIC PANEL Lab Routine Chronic anemia Expected: 01/20/2025, Expires: 01/20/2026 CBC WITH DIFFERENTIAL Lab Routine Chronic anemia Expected: 01/20/2025, Expires: 01/20/2026 IRON, TIBC, AND PERCENT SATURATION Lab Routine Chronic anemia Expected: 01/20/2025, Expires: 01/20/2026 FERRITIN Lab Routine Chronic anemia Expected: 01/20/2025, Expires: 01/20/2026 VITAMIN B12 AND FOLATE Lab Routine Chronic anemia Expected: 01/20/2025, Expires: 01/20/2026 documented as of this encounter Visit Diagnoses Diagnosis Chronic anemia- Primary Anemia, unspecified documented in this encounter Care Teams Tester Operator Relationship Specialty Start Date End Date Raffaele Dumas MD [address] [place] [phone] PCP - General Internal Medicine 01/12/24 documented as of this encounter
--- OUTSIDE RECORDS SUMMARY | 2025-01-20 12:22 | XMS_ITS | Encounter Summary ---
Author Name [facility] Organization [facility] Address [address] [place] [address] Care Team Providers Care Linen Manager Name Role Phone TAMRA FUCHS Primary Care Provider Unavailabl e Selected Encounter This section includes the information on record at NH for the Encounter. Date/Time Encounter Type Encounter Description Reason Provider Source Jan 07, 2025 09:00 AM OFFICE O/P NEW MOD 45 MIN PRIMARY CARE/MEDICINE ICD-10-CM Z00.00 Encntr for general adult medical exam w/o abnormal findings TAMRA FUCHS Ese Encounter Template Text not used by NH Assessments - Encounter Diagnoses This section includes the primary and secondary diagnoses documented for the Encounter. Date/Time Primary/Secondary Diagnosis Diagnosis Name Provider Source Jan 07, 2025 09:27 AM PRIMARY Encntr for general adult medical exam w/o abnormal findings TAMRA FUCHS [facility] Jan 07, 2025 09:27 AM SECONDARY Contact with and exposure to other hazardous substances TAMRA FUCHS [facility] Jan 07, 2025 09:27 AM SECONDARY Other specified hearing loss, bilateral TAMRA FUCHS [facility] Plan of Treatment: Future Appointments (+ 6 months) and Future Tests (+/- 45 days) The Plan of Treatment section includes future care activities for the patient [facility] This section includes future appointments and future orders which are active, pending or scheduled. Future Appointments This section includes appointments that were scheduled to occur 6 months from the date of the Encounter, up to a maximum of 20 appointments. The data comes from all [facility] facilities. Appointment Date/Time Appointment Type Appointme nt Facility Name Mar 12, 2025 08:30 AM AMBULATORY - SURGERY [facility] Vital Signs: All taken on the encounter date This section contains inpatient and outpatient Vital Signs collected on the date of the Encounter. Date/Time Temperature Pulse Blood Pressure Respiratory Rate SP02 Pain Height Weight Body Mass Index Source Jan 07, 2025 09:10 AM 97.8 59 178/96 [address] [facility] Social History: Smoking Status (Most current) and Tobacco Use (All prior to encounter date) This section includes the most current, and the historical, smoking and tobacco- related health factors from the NH facility where the Encounter took place. Current Smoking Status This section includes the most current smoking, or tobacco-related health factor, from the NH facility where the Encounter took place. Date/Time Current Smoking Status Comment Facil ity Jan 06, 2025 03:00 PM NH-TOBACCO NEVER U SED CIGARETTES [facility] Tobacco Use History This section includes a history of the smoking, or tobacco-related health factors, that were collected on or before the date of the Encounter. The data comes from the NH facility where the Encounter took place. Date/Time Smoking Status/Tobacco Use Comment F acility Jan 06, 2025 03:00 PM [facility]-TOBACCO NEVER U SED OTHER TYPE [facility] Encounter Notes: All associated encounter notes This section contains the clinical notes associated to the Encounter. Date/Time Encounter Note(s) Provider Source Jan 07, 2025 09:24 AM PRIMARY CARE INITI AL EVALUATION NOTE: LOCAL TITLE: PRIMARY CARE PROVIDER NEW VISIT [facility] STANDARD TITLE: PRIMARY CARE INITIAL EVALUATION NOTE DATE OF NOTE: JAN 07, 2025@09:24 ENTRY DATE: JAN 07, 2025@09:24:45 AUTHOR: TAMRA FUCHS COSIGNER: URGENCY: STATUS: COMPLETED Reason for visit:New Patient 79 years old male CC / HPI : Vet here to establish the PCP. Dunlap is still driving and does his basic chores by himself. Complaining of hearing loss. Denies any complain today. Lab done on January 12, 2024 WBC 4.7 hemoglobin 14.8 platelet 151 sodium 141 potassium 4.2 creatinine 0.80 calcium 9.6 glucose 117 vitamin B12 788 iron 97 ferritin 58.10 TIBC 312 Lab done May 01, 2024 WBC 4.8 hemoglobin 14.5 platelet 170 sodium 139 potassium 4.4 glucose 103 creatinine 0.75 alk phosphatase 79 AST 27 ALT 16 cholesterol 110 triglycerides 75 HDL 66 LDL 129 will A1c 5.7 PSA<0.064 PMH : prostate cancer s/p surgery and radiation, h/o right upper extremity DVT s/p treated with Coumadin in 1974, currently taking aspirin 81 mg daily. PSH : S/P prostatectomy in 09/2008 for prostate cancer Medications: asa 81 mg , viagra 100 mg , iron pill 65 mg otc. Allergies: NKDA Social History : Tobacco :no ETHO : occas drugs :no Blood Transfusion : no Tattoo : no Living situation : with spouse Work : no ROS : GENERAL: no fever, no chills PULMONARY: denies SOB , cough , wheezing CARDIAC: denies chest pain, denies palpitations GI: no nausea, no vomiting, no abd: pain, no diarrhea, no constipation EXT: denies pedal edema, no arthritis NEURO : no dizziness, no headache Physical exam : GENERAL: pleasant HEART: S1, S2 WNL, CHEST/LUNGS: Clear to auscultation bilaterally. ABDOMEN: soft, nontender EXTREMITIES: feet and ankles without edema, peripheral pulses intact. NEUROLOGICAL: not in acute distress ASSESSMENT/PLAN: The patient's most recent test results and medication list were reviewed in detail with the patient. - Routine Medical Exam: - Hearing loss: Will call audiology clinic Plan: Lab results from 2023 reviewed with . Patient understands to call nurse coordinator if there are any new concerns, and to go to the emergency room for any new acute problem(s). Patient verbalized understanding of the above plan of care and agrees with the same. Lab test result will be mailed to RTC in one year pt is asymtomatic now If any Chest pain, ,SOB, headache, dizziness, Blurring of vision,or or worsening of symptoms call 911 or go to ER. pt. [facility]ance : Immunization done by outside PCP. Medication Review: The essential med list for review which includes the patient's active VA prescriptions and if applicable, remote VA prescriptions, non-VA prescriptions, and discontinued VA prescriptions within the last 90 days and known allergies including local and remote allergies have been reviewed. Toxic Exposure Screening Follow-Up - NS,P: Exposure Concern(s): 01/07/2025 Other Environmental Concerns - Toxic Exposure Concern Other exposures: atomic bombs Follow-up Question(s): 01/07/2025 No Questions - Toxic Exposure Concern /caregiver has no health or medical questions related to their self-reported environmental exposure ([place]IL[place]ED[place]). The following connections were provided to the Dunlap/caregiver: No connections needed at this time Of /hcarly/ Tamra Fuchs MD Staff Physician Signed: 01/07/2025 10:08 TAMRA FUCHS [facility] Jan 07, 2025 09:12 AM NURSING NOTE: LOCAL TITLE: V15 PACT FACE TO FACE NOTE STL STANDARD TITLE: NURSING NOTE DATE OF NOTE: JAN 07, 2025@09:12 ENTRY DATE: JAN 07, 2025@09:12:25 AUTHOR: ALMA CONROY COSIGNER: URGENCY: STATUS: COMPLETED Provider Visit: Patient Identifiers : Full Name Date of Reason for visit: New Patient Do you have a history of any of the following? (check all that apply): Cancer Surgeries (type(s) and date(s)): Have you been seen by a physician, [facility] or private, in the last year? Yes Name and contact information for provider: Have you been hospitalized or seen in an ER in the last year? Yes What hospital(s) or ERs and approximate date(s)? Records request sent: Have you had a colonoscopy previously? Yes What location and approximate date(s)? Records request sent: Have you had a Mammogram previously? No Mode of Arrival: Ambulatory Allergy Review: Patient has answered NKA Allergy list reviewed and remains current. Recent Vital Signs: Temperature: 97.8 F [36.6 C] (01/07/2025 09:10) Pulse: 59 (01/07/2025 09:10) Respiration: 16 (01/07/2025 09:10) B/P: 178/96 (01/07/2025 09:10) Pain: 0 (01/07/2025 09:10) Wt: 161.8 lb [73.39 kg] (01/07/2025 09:10) Ht: BMI: BMI not available without height POX: 98% (01/07/2025 09:10) PERSONAL HEALTH INVENTORY Notes: No data available for PHI note titles PERSONAL HEALTH INVENTORY - MAP: No data available for PHI MAP What matters most to you in your life right now? 's Response: my family Would you like to discuss any personal problem, family problem, alcohol use, drug use, or a mental or emotional illness? No [facility] ([facility]), please select appointment type: Face to face: No-please briefly review benefits and direct to [facility] to get more information and register if interested. No- Are you interested in getting this done? No Contact provided Primary Care phone number and encouraged to call if any questions or concerns. Review that after hours nurse line [phone] and emergency room are available 10/04 for patient use. Contact verbalized good understanding. MST Screening - V: Patient denies experiencing sexual trauma (MST). Suicide Screen - V: C-SSRS Screening [place] Suicide Severity Rating Scale (C-SSRS) screener 1. Over the past month, have you wished you were or wished you could go to sleep and not wake up? No 2. Over the past month, have you had any actual thoughts of killing yourself? No 3. Over the past month, have you been thinking about how you might do this? Response not required due to responses to other questions. 4. Over the past month, have you had these thoughts and had some intention of acting on them? Response not required due to responses to other questions. 5. Over the past month, have you started to work out or worked out the details of how to kill yourself? Response not required due to responses to other questions. 6. If yes, at any time in the past month did you intend to carry out this plan? Response not required due to responses to other questions. 7. In your lifetime, have you ever done anything, started to do anything, or prepared to do anything to end your life (for example, collected pills, obtained a gun, gave away valuables, went to the roof but didn't jump)? No 8. If YES, was this within the past 3 months? Response not required due to responses to other questions. Toxic Exposure Screening - CP,DI,L,NS,P,PH,S,U: The Dunlap/caregiver was asked if they believe the experienced any toxic exposure(s), such as Airborne Hazards and Open Burn [place], [place] War related exposures, Agent Collier, Radiation, contaminated water at [place] or other such exposures, while serving in the [employer]. 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 No questions at this time /caregiver was informed of local points of contact. Contact information for local resources: [facility] Registry Exam Program: [phone] Eligibility: [phone] KIARRA [id number] JOLEEN [id number] [facility] Registry Exam Program: [phone] DANETTE Navigator: [id number] Environmental Health Coordinator: [id number] [facility] Registry Exam Program: [phone] [id number] Eligibility: [phone] [id number] Toxic Exposure Screening Follow-Up reminder is needed. Name of person notified: dr fuchs Depression Screening - V: Perform PHQ-2 A PHQ-2 screen was performed. The score was 0 which is a negative screen for depression. Over the past two weeks, how often have you been bothered by the following problems? 1. Little interest or pleasure in doing things Not at all 2. Feeling down, depressed, or hopeless Not at all Frail/Elderly Screen: ADL Screen - Diaz Index of [place] in Activities of Daily Living Bathing: (3 Points) Receives no assistance (gets in and out of tub by self, if tub is usual means of bathing) Dressing: (3 Points) Gets clothes and gets completely dressed without assistance. Toileting: (3 Points) Goes to toilet room , cleans self, and arranges clothes without assistance (may use object for support such as cane, walker, or wheelchair, and may manage own night bedpan or commode, emptying same next morning) Transferring: (3 Points) Moves in and out of bed and in and out of chair without assistance (may be using object for support, such as cane or walker) Continence: (3 Points) Controls urination and bowel movement completely by self Feeding: (3 Points) Feeds self without assistance Total Score: 18 Points 18 = High (patient independent) 6 = Low (patient very dependent) IADL Screen - Roger Instrumental Activities of Daily Living Scale Ability to use telephone: (1 point) Operates Telephone on own initiative; looks up and dials numbers. Shopping: (1 point) Takes care of all shopping needs independently. Food preparation: (1 point) Plans, prepares, and serves adequate meals independently. Housekeeping: (1 point) Maintains house alone with occasional assistance (heavy work). Laundry: (1 point) Does personal laundry completely. Mode of transportation: (1 point) Travels independently on public transportation or drives own car. Responsibility for own medications: (1 point) Is responsible for taking medications in correct dosages at correct times. Ability to handle finances: (1 point) Manages financial matters independently (budgets, writes checks, pays rent and bills, goes to bank); collects and keeps track of income. Total score: 8 points 8 = High function, independent 0 = Low function, dependent Falls Screen: No falls within the past 12 months. Incontinence Screen: Within the past 12 months, has the patient had any characteristics of incontinence (ability, voiding, leakage, etc.)? PTSD Screening - V: PC-PTSD-5 A PTSD screening test (PC-PTSD-5) was negative (score=0). IN THE PAST MONTH, have you ever had any experience that was so frightening, horrible or traumatic. For example: A serious accident or fire a physical or sexual assault or abuse An earthquake or flood A war Seeing someone be killed or seriously injured Having a loved one through homicide or suicide 1. Have you ever experienced this kind of event? NO 2. Had nightmares about the event(s) or thought about the event(s) when you did not want to? Response not required due to responses to other questions. 3. Tried hard not to think about the event(s) or went out of your way to avoid situations that reminded you of the event(s)? Response not required due to responses to other questions. 4. Been constantly on guard, watchful, or easily startled? Response not required due to responses to other questions. 5. [place] numb or detached from people, activities, or your surroundings? Response not required due to responses to other questions. 6. [place] guilty or unable to stop blaming yourself or others for the event(s) or any problems the event(s) may have caused? Response not required due to responses to other questions. /charly/ ALMA CONROY LPN LICENSED PRACTICAL NURSE Signed: 01/07/2025 09:21 ALMA CONROY [facility]
--- OUTSIDE RECORDS SUMMARY | 2025-01-20 12:22 | XMS_ITS | Clinical Summary ---
Author Organization [facility] Address [address] [place] [address] Care Team Providers Care Loading Inspector Name Role Phone Raffaele Dumas MD Primary Care Provider [phone] Allergies No known active allergies Medications sildenafiL (VIAGRA) 100 mg tablet 11/12/2021 Active aspirin (ECOTRIN EC) 81 mg Tablet, Delayed Release (E.C.) 11/12/2021 Acti ve ferrous sulfate 325 mg (65 mg iron) tablet Take 325 mg by mouth daily. Active Active Problems Problem Noted Date Diagnosed Date Leukopenia 02/03/2022 Encounters Date Type Department Care Team Description 01/20/2025 Orders Only [facility] Oncology and Hematology - [address] [id number] Pierre Pabon MD Chronic anemia (Primary Dx) 12/04/2024 External Device Data ST[facility] ABSTRACTION Provider, Abstract 11/23/2024 External Device Data [facility] ABSTRACTION Provider, Abstract 11/22/2024 External Device Data [facility] ABSTRACTION Provider, Abstract 11/06/2024 External Device Data [facility] ABSTRACTION Provider, Abstract from Last 3 Months Social History Tobacco Use Types Packs/Day Years Used Date Smoking Tobacco: Never Smokeless Tobacco: Never Tobacco Cessation:Counseling Given: Not Answered Sex and Gender Information Value Date Recorded Sex Assigned at Not on file Legal Sex Male 11:55 AM CDT Gender Identity Not on file Sexual Orientation Not on file Last Filed Vital Signs Vital Sign Reading Time Taken Comments Blood Pressure 168/101 01/17/2024 10:11 AM CDT Pulse 69 01/17/2024 10:10 AM CDT Temperature 36.1 C (97 F) 01/17/2024 10:10 AM CDT Respiratory Rate 14 01/17/2024 10:10 AM CDT Oxygen Saturation 97% 01/17/2024 10:10 AM CDT Inhaled Oxygen Concentration - - Weight 68 kg (150 lb) 01/17/2024 10:10 AM CDT Height 182.9 cm (6') 02/24/2022 1:25 PM CDT Body Mass Index 20.34 02/24/2022 1:25 PM CDT Plan of Treatment Upcoming Encounters Date Type Department Care Team (Late st Contact Info) Description 01/22/2025 11:00 AM CDT Office Visit [facility] Oncology and Hematology - [place] [address] [facility] [address] [place] [address] Pierre Pabon MD [phone] [facility] [address] [place] [address] Health Maintenance Due Date Last Done Comments RSV VACCINE (60+ or ) (1 - 1-dose 75+ series) 01/08/2019 DTAP/TDAP/TD VACCINES (2 - T d or Tdap) 08/08/2023 08/08/2013 INFLUENZA VACCINE (#1) 2024 , 07/09/2018, 07/07/2017, Additional history exists COVID-19 Vaccine (3 - 2023-2 5 season) 2024 12/07/2020, 11/04/2020 PNEUMOCOCCAL VACCINE 50+ YEARS Completed 07/16/2015 , 08/23/2010 ZOSTER VACCINE Completed 04/25/2022, 12/17, 09/06/2010 COLORECTAL SCREENING Discontinued 06/01/2022 Colorectal Cancer Screening Discontinued FIT-DNA Q 3 years Discontinued FIT/FOBT Q 1 year Discontinued Flex Sig/CT Colonography Q 5 years Discontinued Insurance [email or web address] MEDICARE PART A AND B Care Teams Loading Inspector Relationship Specialty Start Date End Date Raffaele Dumas MD [address] [place] [phone] PCP - General Internal Medicine 01/12/24
[2025-01-20 16:31] LABS: Iron 107 ug/dL (49-181)
[2025-01-20 16:32] LABS: Alanine Aminotransferase 18 U/L (6-50); Albumin Level 4.5 g/dL (3.5-5.1); Alkaline Phosphatase 77 U/L (38-126); Anion Gap 6 mmol/L (4-12); Aspartate Amino Transferase 40 U/L (17-59); Bilirubin,Total 0.9 mg/dL (0.2-1.3); Blood Urea Nitrogen 9 mg/dL (9-20); Calcium 9.2 mg/dL (8.4-10.2); Carbon Dioxide 29 mmol/L (22-30); Chloride 105 mmol/L (98-107); Estimated Glomerular Filt Rate > 60; Glucose 100 mg/dL (65-110); Potassium 4.3 mmol/L (3.4-5.0); Sodium 140 mmol/L (137-145)
[2025-01-20 16:49] LABS: Percent Iron Saturation 35 % (20-50)
[2025-01-20 17:46] LABS: Folic Acid 13.2 ng/mL (2.76->20); Vitamin B12 > 1000.0 pg/mL (239-931)
== END 2025-01-20 11:30 | disposition home or self-care (01) ==
LOC: ANHLAB 11:30
PROVIDERS: PCP Internal Medicine; Visit Provider Internal Medicine Hematology & Oncology
DX: D64.9 Anemia, unspecified (principal)
CPT/HCPCS: 36415; 80053; 82607; 82728; 82746; 83540; 83550; 85025